=== PATIENT | female | born 1950 | race Caucasian/White ===

== ENCOUNTER 2016-05-02 21:06 | Emergency (ER) | payer OTHER ==
[~2016-05-02] VITALS: Ht 160 cm; Wt 92.0 kg
[~2016-05-02 21:06] MED LIST: AMLO-110 PO; ASPI-435 PO; ATEN-171 PO; ATOR-54 PO; FENO1TAB PO; SITA50TA5 PO
[2016-05-02 21:11] VITALS: Ht 160 cm; Wt 92.0 kg
[2016-05-02 21:54] LABS: BASO % 0.3 %; BASO ABS # 0.02 K/uL (0-0.2); COMPLETE YES; EOS % 0.3 %; HEMATOCRIT 35.5 % (37-47); IG% 0.5 %; LYMPH % 15.4 %; LYMPH ABS # 0.95 K/uL (1.2-3.4); MEAN CELL VOLUME 85.5 fL (80-100); MEAN CORPUSCULAR HEMOGLOBIN 28.9 pg (25-34); MEAN CORPUSCULAR HGB CONC 33.8 g/dl (32-36); MEAN PLATELET VOLUME 10.6 fL (7.4-10.4); MONO % 9.4 %; NEUT % 74.1 %; PLATELET COUNT 213 K/uL (130-400); RED BLOOD COUNT 4.15 M/uL (4.2-5.4); WHITE BLOOD COUNT 6.18 K/uL (4.8-10.8)
[2016-05-02] MEDS ORDERED: ACETAMINOPHEN 500 MG TAB PO ONE (22:05)
[2016-05-02] MEDS ORDERED: IPRATROPIUM BROMIDE NEB SOLN 0.02% 2.5 ML VIAL INH STA (22:10)
[2016-05-02] MEDS ORDERED: SODIUM CHLORIDE 0.9% 500ML 500 ML IV STA (22:10)
[2016-05-02] MEDS ORDERED: KETOROLAC TROMETHAMINE 30 MG/ML VIAL IV STA (22:10)
[2016-05-02] MEDS ORDERED: LEVALBUTEROL 1.25MG/0.5ML NEB INH STA (22:10)
[2016-05-02] MEDS ORDERED: SODIUM CHLORIDE 0.9% 1000ML 1,000 ML IV STA (22:10)
[2016-05-02 22:11] LABS: BUN/CREATININE RATIO 19.6 (10-20); CALCIUM 8.5 mg/dl (8.5-10.1); CREATININE 1.4 mg/dl (0.60-1.20); POTASSIUM 3.2 mmol/L (3.5-5.1)
--- NOTE | 2016-05-02 22:11 | DIAGNOSTIC IMAGING REPORT ---
SINGLE VIEW CHEST CLINICAL HISTORY: Fever. FINDINGS: An AP, portable, upright chest radiograph is obtained. No prior studies are available for comparison at the time of dictation. The examination is degraded by portable technique, apical lordotic positioning, and patient rotation. The heart is top normal in size and there is atherosclerotic calcification of the thoracic aorta. The pulmonary vasculature is noncongested. The lungs and pleural spaces are clear. No pneumothorax is seen. The skeletal structures are osteopenic. The bony thorax is grossly intact. IMPRESSION: No acute cardiopulmonary abnormality. Electronically signed by: Mark Hong M.D. 05/02/2016 10:10 PM Dictated Date/Time: 05/02/2016 10:09 PM
[2016-05-02 22:14] LABS: ALB/GLOB RATIO 1.1 (0.9-2)
--- NOTE | 2016-05-02 22:27 | EMERGENCY ROOM VISIT NOTE ---
History Report prepared by Yuri: Sushil Negro Under the Supervision of: Dr. Mark Hess M.D. First contact with patient: 22:07 Chief Complaint: FEVER Stated Complaint: FEVER FOR 3DAYS, COUGH History of Present Illness The patient is a 66 year old female who presents to the Emergency Room with complaints of a persistent fever beginning two days prior to arrival. She associates chills, dry cough, congestion, sore throat, weakness, fatigue, and confusion when her temperature is high with today's symptoms. The patient notes her was diagnosed with the flu yesterday. She states it takes a while for her to get up, and she will urinate herself when trying to get up. The patient notes she has been taking Tylenol and Ibuprofen to manage her fever. She denies ever having to take steroids for her lungs in the past. The patient denies chest pain, vomiting, and diarrhea. Source of History: patient Onset: two days [employer]PER[employer] Position: other (global) Quality: other (fever) Timing: other (persistent) Associated Symptoms: + chills, + cough, + fatigue, + fevers, + sorethroat, + weakness, No chest pain, No diarrhea, No nausea, No vomiting Note: Associated symptoms: congestion, confusion with high temperatures. Review of Systems See HPI for pertinent positives & negatives. A total of 10 systems reviewed and were otherwise negative. Past Medical & Surgical Medical Problems: (1) Diabetes (2) Hypertension Surgical Problems: (1) S/P (2) S/P cholecystectomy Family History Diabetes mellitus FH: heart disease FHx: lung disease Hypertension Social History Smoking Status: Never Smoker Marital Status: Occupation Status: retired Current/Historical Medications Scheduled Albuterol Hfa (Ventolin Hfa), 3 PUFFS INH Q4H Amlodipine (Norvasc), 5 MG PO DAILY Aspirin (Aspirin 81), 81 MG PO DAILY Atenolol/Chlorthalidone (Tenoretic 50 Mg/25 Mg), 1 TAB PO DAILY Atorvastatin (Lipitor), 20 MG PO DAILY Fenofibrate (Tricor), 160 MG PO DAILY Glimepiride (Amaryl), 4 MG PO DAILY Oseltamivir (Tamiflu), 75 MG PO BID Sitagliptin-Metformin Hcl (Janumet), 1 TABS PO BIDM Allergies Coded Allergies: No Known Allergies (Unverified , 05/02/16) Physical Exam Vital Signs Date Time Temp Pulse Resp B/P Pulse Ox O2 Delivery O2 Flow Rate FiO2 05/02/16 23:52 37.2 85 12 156/76 94 05/02/16 22:30 78 20 163/70 99 Nebulizer 8.0 05/02/16 22:23 85 05/02/16 22:07 90 Room Air 05/02/16 21:11 39.1 80 20 149/76 92 Room Air Physical Exam GENERAL: Patient is in no acute distress. HEENT: No throat erythema or exudate. No acute trauma, normocephalic atraumatic , mucous membranes moist, no nasal congestion, no scleral icterus. NECK: No stridor, no adenopathy, no meningismus, trachea is midline. LUNGS: Moist cough. Diminished breath sounds bilaterally. No wheezing or rhonchi. No respiratory distress. HEART: Without murmurs gallops or rubs, regular rate and rhythm. ABDOMEN: Soft, nontender, bowel sounds positive, no hernias, no peritonitis. EXTREMITIES: No cyanosis or edema, full range of motion of all the joints without pain or difficulty, no signs for acute trauma. NEUROLOGIC: Oriented x 3, no acute motor or sensory deficits, no focal weakness. SKIN: No rash, no jaundice, no diaphoresis. Medical Decision & Procedures ER Provider Diagnostic Interpretation: X-ray results as stated below per interpretation by me and the radiologist: SINGLE VIEW CHEST CLINICAL HISTORY: Fever. FINDINGS: An AP, portable, upright chest radiograph is obtained. No prior studies are available for comparison at the time of dictation. The examination is degraded by portable technique, apical lordotic positioning, and patient rotation. The heart is top normal in size and there is atherosclerotic calcification of the thoracic aorta. The pulmonary vasculature is noncongested. The lungs and pleural spaces are clear. No pneumothorax is seen. The skeletal structures are osteopenic. The bony thorax is grossly intact. IMPRESSION: No acute cardiopulmonary abnormality. Electronically signed by: Mark Hong M.D. 05/02/2016 10:10 PM Laboratory Results 05/02/16 21:30 Red Blood Count 4.15, Mean Corpuscular Volume 85.5, Mean Corpuscular Hemoglobin 28.9, Mean Corpuscular Hemoglobin Concent 33.8, Mean Platelet Volume 10.6, Neutrophils (%) (Auto) 74.1, Lymphocytes (%) (Auto) 15.4, Monocytes (%) (Auto) 9.4, Eosinophils (%) (Auto) 0.3, Basophils (%) (Auto) 0.3, Neutrophils # (Auto) 4.58, Lymphocytes # (Auto) 0.95, Monocytes # (Auto) 0.58, Eosinophils # (Auto) 0.02, Basophils # (Auto) 0.02 05/02/16 21:30 Test 05/02/16 21:30 05/02/16 21:55 05/02/16 21:57 05/02/16 22:00 White Blood Count 6.18 K/uL (4.8-10.8) Red Blood Count 4.15 M/uL (4.2-5.4) Hemoglobin 12.0 g/dL (12.0-16.0) Hematocrit 35.5 % (37-47) Mean Corpuscular Volume 85.5 fL (80-100) Mean Corpuscular Hemoglobin 28.9 pg (25-34) Mean Corpuscular Hemoglobin Concent 33.8 g/dl (32-36) Platelet Count 213 K/uL (130-400) Mean Platelet Volume 10.6 fL (7.4-10.4) Neutrophils (%) (Auto) 74.1 % Lymphocytes (%) (Auto) 15.4 % Monocytes (%) (Auto) 9.4 % Eosinophils (%) (Auto) 0.3 % Basophils (%) (Auto) 0.3 % Neutrophils # (Auto) 4.58 K/uL (1.4-6.5) Lymphocytes # (Auto) 0.95 K/uL (1.2-3.4) Monocytes # (Auto) 0.58 K/uL (0.11-0.59) Eosinophils # (Auto) 0.02 K/uL (0-0.5) Basophils # (Auto) 0.02 K/uL (0-0.2) RDW Standard Deviation 41.0 fL (36.4-46.3) RDW Coefficient of Variation 13.2 % (11.5-14.5) Immature Granulocyte % (Auto) 0.5 % Immature Granulocyte # (Auto) 0.03 K/uL (0.00-0.02) Urine Color YELLOW Urine Appearance CLOUDY (CLEAR) Urine pH 5.0 (4.5-7.5) Urine Specific [place] 1.017 (1.000-1.030) Urine Protein NEG (NEG) Urine Glucose (UA) NEG (NEG) Urine Ketones NEG (NEG) Urine Occult Blood NEG (NEG) Urine Nitrite NEG (NEG) Urine Bilirubin NEG (NEG) Urine Urobilinogen NEG (NEG) Urine Leukocyte Esterase NEG (NEG) Urine WBC (Auto) 1-5 /hpf (0-5) Urine RBC (Auto) 0-4 /hpf (0-4) Urine Hyaline Casts (Auto) 1-5 /lpf (0-5) Urine Epithelial Cells (Auto) 0-5 /lpf (0-5) Urine Bacteria (Auto) NEG (NEG) Anion Gap 14.0 mmol/L (3-11) Est Creatinine Clear Calc Drug Dose 43.2 ml/min Estimated GFR () 45.6 Estimated GFR (Non- 39.3 BUN/Creatinine Ratio 19.6 (10-20) Calcium Level 8.5 mg/dl (8.5-10.1) Total Bilirubin 0.3 mg/dl (0.2-1) Aspartate Amino Transf (AST/SGOT) 54 U/L (15-37) Alanine Aminotransferase (ALT/SGPT) 39 U/L (12-78) Alkaline Phosphatase 66 U/L (45-117) Total Protein 6.5 gm/dl (6.4-8.2) Albumin 3.4 gm/dl (3.4-5.0) Globulin 3.1 gm/dl (2.5-4.0) Albumin/Globulin Ratio 1.1 (0.9-2) Bedside Lactic Acid Venous 2.18 mmol/L (0.90-1.70) Bedside Troponin I 0.010 ng/ml (0-0.045) Influenza Type A Antigen POS for Influ A (NEG) Influenza Type B Antigen Neg for Influ B (NEG) Laboratory results reviewed by me. Medications Administered Medications (Trade) Dose Ordered Sig/Ting Route Start Time Stop Time Status Last Admin Dose Admin Acetaminophen 1000 mg 1,000 mg STK-MED ONCE PO 05/02/16 22:05 05/02/16 22:07 DC 05/02/16 22:09 1,000 MG Sodium Chloride (Nss 500ml) 500 ml @ 999 mls/hr Q31M STAT IV 1/25/17 22:10 05/02/16 22:40 DC 05/02/16 22:30 999 MLS/HR Ketorolac Tromethamine (Toradol Inj) 30 mg NOW STAT IV 05/02/16 22:10 05/02/16 22:14 DC 05/02/16 22:29 30 MG Levalbuterol (Xopenex 1.25MG/ 0.5ML Neb) 1.25 mg NOW STAT INH 05/02/16 22:10 05/02/16 22:14 DC 05/02/16 22:29 1.25 MG Ipratropium Starr (Atrovent 0.02% 0.5MG/2.5ML Neb) 0.5 mg NOW STAT INH 05/02/16 22:10 05/02/16 22:14 DC 05/02/16 22:29 0.5 MG Oseltamivir Phosphate (Tamiflu Cap) 75 mg NOW STAT PO 05/02/16 22:53 05/02/16 22:55 DC 05/02/16 23:42 75 MG Albuterol (Ventolin Hfa Inhaler) 2 puffs NOW ONCE INH 05/02/16 23:30 05/02/16 23:31 DC 05/02/16 23:43 2 PUFFS ED Course 8: The patient was evaluated in room C10. A complete history and physical exam was performed. 2210: Ordered Ipratropium Starr 0.5 mg INH, Levalbuterol 1.25 mg INH, Toradol Inj 30 mg IV, Sodium Chloride 1,000 ml @ 125 mls/hr IV, Sodium Chloride 500 ml @ 999 mls/hr IV. It is noted the patient is positive for influenza A. 2253: Ordered Tamiflu Cap 75 mg PO. 2318: Reevaluated the patient. Discussed results and discharge instructions: She verbalized understanding and agreement. The patient is ready for discharge. 2330: Ordered Albuterol 2 puffs INH. Medical Decision The differential diagnoses include but are not limited to: influenza, pneumonia , flu-like illness, bronchitis, UTI, sepsis, dehydration, electrolyte imbalance. There is no leukocytosis or concerning anemia. No significant electrolyte abnormality, kidney failure or hepatitis. Lactic acid level is mildly elevated , likely from dehydration. Urinalysis does not show infection. Chest film does not show pneumonia. Influenza testing is positive for influenza A. Blood cultures are pending. The patient received a Xopenex Atrovent neb, she was given IV saline, IV Toradol , oral Tylenol. She received albuterol via [facility] and was given oral Tamiflu. The patient feels markedly better, her temperature has decreased. She is still coughing but she is not hypoxic. She is not toxic. I do think she can be discharged. She appears to have acute influenza. This diagnosis explains her presentation. She has agreed to return if worsening. As she has been sick for 2, maybe 3 days, I will try Tamiflu. Albuterol for bronchospasm. Hydration, rest and fever control were encouraged. Impression Primary Impression: Influenza A Additional Impression: Fever Scribe Attestation The scribe's documentation has been prepared under my direction and personally reviewed by me in its entirety. I confirm that the note above accurately reflects all work, treatment, procedures, and medical decision making performed by me. Departure Information Dispostion Home / Self-Care Prescriptions Albuterol Hfa (VENTOLIN HFA) 200 Puffs/75009 Mcg Aers 3 PUFFS INH Q4H, #1 INHALER Prov: Mark Hess M.D. 05/02/16 Oseltamivir (Tamiflu) 75 Mg Cap 75 MG PO BID, #10 CAP Prov: Mark Hess M.D. 05/02/16 Referrals Garett Melgar M.D.([facility]) (PCP) Forms HOME CARE DOCUMENTATION FORM, IMPORTANT VISIT INFORMATION Patient Instructions My [facility] Additional Instructions tamiflu 2x per day for 5 days fluids rest albuterol 3 puffs every 4 hours motrin and tylenol to control your fevers see your doctor for a recheck this week return for worsening symptoms or worsening breathing Problem Qualifiers
[2016-05-02] MEDS ORDERED: GLIM4TAB PO (22:45)
[2016-05-02] MEDS ORDERED: OSELTAMIVIR PHOSPHATE 75 MG CAP PO STA (22:53)
[2016-05-02] MEDS ORDERED: VNTHFA/IN INH (23:25)
[2016-05-02] MEDS ORDERED: OSEL75CA12 PO (23:25)
[2016-05-02] MEDS ORDERED: ALBUTEROL HFA 8 GM INHALER INH ONE (23:30)
[2016-05-02 23:52] VITALS: BP 156/76; PULSE 85; TEMP 37.2; O2SAT 94
[2016-05-03 01:37] LABS: URINE APPEARANCE CLOUDY (CLEAR); URINE BILIRUBIN NEG (NEG); URINE COLOR YELLOW; URINE EPITHELIAL CELL AUTO 0-5 /lpf (0-5); URINE NITRITE NEG (NEG); URINE SPECIFIC GRAVITY 1.017 (1.000-1.030); UROBILINOGEN NEG (NEG)
[2016-05-03 01:42] LABS: MANUAL MICROSCOPIC REQUIRED? NO; REVIEW REQ? NO
== END 2016-05-02 23:50 | disposition home or self-care (01) ==
LOC: C.EDB 21:07 → C.EDC 23:50
DX: J11.1 Influenza due to unidentified influenza virus with other respiratory manifestations (principal); I10 Essential (primary) hypertension; E11.9 Type 2 diabetes mellitus without complications; Z90.49 Acquired absence of other specified parts of digestive tract

== ENCOUNTER → 2016-05-21 | Outpatient (CLI) | payer OTHER ==
[~2016-05-21] MED LIST changes: +ACET650T66 PO; +AMLO-114 PO; +ASCO100061 PO; +CALC600T PO; +CHOL2000 PO; +CIPR-255 PO; +DOXY100C76 PO; +GLIM2TAB2 PO; +GLIM4TAB PO; +MAGN400T6 PO; +METR-163 PO; +MULT-506 PO; +OMEG10007 PO; +ONDA4TAB10 SL; +OSEL75CA12 PO; +SLWMEC PO; +VNTHFA/IN INH
--- NOTE | 2016-05-21 12:40 | MAMMOGRAPHY REPORT ---
BILATERAL DIGITAL SCREENING MAMMOGRAM WITH CAD: 05/21/2016 CLINICAL HISTORY: Routine screening. Patient has no complaints. TECHNIQUE: Current study was also evaluated with a Computer Aided Detection (CAD) system. Bilatera l CC and MLO views were obtained. COMPARISON: Comparison is made to exams dated: 05/19/2015 mammogram, 05/12/2014 mammogram, 05/11/2013 ma mmogram, 05/07/2012 mammogram, and 05/01/2011 mammogram - [facility]. BREAST COMPOSITION: There are scattered areas of fibroglandular density in both breasts. FINDINGS: No suspicious masses, calcifications, or areas of architectural distortion are noted in e ither breast. There has been no significant interval change compared to prior exams. IMPRESSION: ACR BI-RADS CATEGORY 1: NEGATIVE There is no mammographic evidence of malignancy. A 1 year screening mammogram is recommended. The p atient will receive written notification of the results. Approximately 10% of breast cancers are not detected with mammography. A negative mammographic repor t should not delay biopsy if a clinically suggestive mass is present. Xiomara Garnica M.D. ah/:05/21/2016 08:05:27 Food And Beverage Analyst: Lanny Patel, [facility] letter sent: Normal 1/2 BI-RADS Code: ACR BI-RADS Category 1: Negative
== END | disposition home or self-care (01) ==
LOC: C.MAMM 07:47
PROVIDERS: ATTEND Family Medicine
DX: Z12.31 Encounter for screening mammogram for malignant neoplasm of breast (principal)

== ENCOUNTER 2016-11-25 11:13 | Emergency (ER) | payer OTHER ==
[~2016-11-25] VITALS: Ht 160 cm; Wt 90.0 kg
[~2016-11-25 11:13] MED LIST changes: -ACET650T66 PO; -AMLO-114 PO; -ASCO100061 PO; -CALC600T PO; -CHOL2000 PO; -CIPR-255 PO; -DOXY100C76 PO; -GLIM2TAB2 PO; -MAGN400T6 PO; -METR-163 PO; -MULT-506 PO; -OMEG10007 PO; -ONDA4TAB10 SL; -OSEL75CA12 PO; -SLWMEC PO; -VNTHFA/IN INH
[2016-11-25 11:15] VITALS: TEMP 36.6; Ht 160 cm; Wt 90.0 kg
[2016-11-25] MEDS ORDERED: SODIUM CHLORIDE 0.9% 1000ML 1,000 ML IV STA (11:41)
[2016-11-25] MEDS ORDERED: ONDANSETRON INJ 2 MG/ML 2 ML VIAL IV STA (11:41)
[2016-11-25 11:58] LABS: BASO ABS # 0.09 K/uL (0-0.2); COMPLETE YES; EOS % 0.1 %; IG% 0.3 %; LYMPH % 28.2 %; LYMPH ABS # 2.63 K/uL (1.2-3.4); MEAN CELL VOLUME 86.3 fL (80-100); MEAN CORPUSCULAR HEMOGLOBIN 28.6 pg (25-34); MEAN CORPUSCULAR HGB CONC 33.2 g/dl (32-36); MEAN PLATELET VOLUME 10.1 fL (7.4-10.4); MONO % 9.3 %; NEUT % 61.1 %; PLATELET COUNT 328 K/uL (130-400); RED BLOOD COUNT 4.75 M/uL (4.2-5.4); WHITE BLOOD COUNT 9.32 K/uL (4.8-10.8)
[2016-11-25] MEDS ORDERED: CALC600T PO (12:02)
[2016-11-25] MEDS ORDERED: MAGN400T6 PO (12:02)
[2016-11-25] MEDS ORDERED: DOXY100C76 PO (12:02)
[2016-11-25] MEDS ORDERED: GLIM2TAB2 PO (12:02)
[2016-11-25] MEDS ORDERED: OMEG10007 PO (12:02)
[2016-11-25] MEDS ORDERED: AMLO-114 PO (12:02)
[2016-11-25] MEDS ORDERED: ASCO100061 PO (12:05)
[2016-11-25] MEDS ORDERED: MULT-506 PO (12:05)
[2016-11-25] MEDS ORDERED: SLWMEC PO (12:05)
[2016-11-25] MEDS ORDERED: CHOL2000 PO (12:05)
[2016-11-25] MEDS ORDERED: ACET650T66 PO (12:08)
[2016-11-25 12:13] LABS: BUN/CREATININE RATIO 25.2 (10-20); CREATININE 1.1 mg/dl (0.60-1.20); POTASSIUM 3.4 mmol/L (3.5-5.1)
[2016-11-25] MEDS ORDERED: OPTIRAY 320 IV PRN (12:30)
--- NOTE | 2016-11-25 14:26 | DIAGNOSTIC IMAGING REPORT ---
CT SCAN OF THE ABDOMEN AND PELVIS WITH IV CONTRAST CLINICAL HISTORY: Left lower quadrant abdominal pain. COMPARISON STUDY: Abdominal CT dated 11/03/2009. TECHNIQUE: Following the IV administration of 94 cc of Optiray 320, CT scan of the abdomen and pelvis is performed from the lung bases to the proximal femora. Images are reviewed in the axial, sagittal, and coronal planes. IV contrast was administered without complication. Automated dose control exposure was utilized. A dose lowering technique was utilized adhering to the principles of ALARA. CT DOSE: 885.67 mGy.cm FINDINGS: Lung bases: The heart is normal in size and without pericardial effusion. The coronary arteries are densely calcified. The lung bases are clear noting dependent atelectasis. Liver: The contrast-enhanced liver is enlarged, measuring 22 cm in length. The liver demonstrates diffusely diminished attenuation consistent with hepatic steatosis. There is mild central intrahepatic biliary ductal dilatation. The hepatic veins and portal veins are patent. Gallbladder: Surgically absent. Spleen: Normal in size and attenuation. Pancreas: Unremarkable. Adrenal glands: Unremarkable. Kidneys: The contrast enhanced kidneys demonstrate mild cortical atrophy and are without hydronephrosis. The kidneys enhance symmetrically. Abdominal vasculature: The abdominal aorta is normal in course and caliber noting moderate to advanced atherosclerotic calcification. Bowel: No bowel obstruction is seen. There is moderate colonic diverticulosis. There is wall thickening with pericolonic inflammation and trace surrounding fluid involving the distal descending/proximal sigmoid colon consistent with acute diverticulitis. No diverticular abscess is identified. The appendix is well-visualized and normal. Peritoneum: There is no intraperitoneal free air or abdominal ascites. Lymphadenopathy: None. Pelvic viscera: The bladder, uterus, and adnexa are normal as visualized. Skeletal structures: The skeletal structures are osteopenic. Mild to moderate lumbosacral spondylosis is observed. No lytic or blastic lesions are seen. IMPRESSION: 1. Findings are consistent with acute diverticulitis of the distal descending/proximal sigmoid colon. No intraperitoneal free air is seen and there is no evidence of abscess. 2. Hepatomegaly and hepatic steatosis. 3. The coronary arteries are densely calcified. Electronically signed by: Mark Hong M.D. 11/25/2016 2:25 PM Dictated Date/Time: 11/25/2016 2:20 PM
[2016-11-25] MEDS ORDERED: CIPROFLOXACIN 500 MG TAB PO STA (14:28)
[2016-11-25] MEDS ORDERED: METRONIDAZOLE 250 MG TAB PO STA (14:28)
[2016-11-25] MEDS ORDERED: CIPR-255 PO (14:31)
[2016-11-25] MEDS ORDERED: METR-163 PO (14:31)
[2016-11-25] MEDS ORDERED: ONDA4TAB10 SL (14:31)
--- NOTE | 2016-11-25 14:32 | EMERGENCY ROOM VISIT NOTE ---
History Report prepared by Yuri: Mariola Fernandez Under the Supervision of: Dr. Mt Marrero D.O. First contact with patient: 11:33 Chief Complaint: ABDOMINAL PAIN Stated Complaint: PAIN IN LOWER FRONT Nursing Triage Summary: pt to the ED with c/o lower abd pain starting at begining of last week with lack of interest in food and loose stool is being tx for lymes History of Present Illness The patient is a 66 year old female who presents to the Emergency Room with complaints of worsening lower abdominal pain which started earlier this week. The pain is in her lower abdomen and when she tries to relax, pain shoots down her groin. The pain worsened over the past 2 nights. She denies any nausea, vomiting, diarrhea, fever, or back pain. She is currently being treated for lyme disease and has had looser stools. She has had a cholecystectomy and c section. She denies any other abdominal surgeries. She denies any history of diverticulitis. She is not on blood thinners. Source of History: patient Onset: earlier this week Position: abdomen (lower) Quality: other (shooting) Timing: worsening Associated Symptoms: No fevers, No nausea, No vomiting, No back pain, No diarrhea Review of Systems See HPI for pertinent positives & negatives. A total of 10 systems reviewed and were otherwise negative. Past Medical & Surgical Medical Problems: (1) Diabetes (2) Hypertension Surgical Problems: (1) S/P (2) S/P cholecystectomy Family History Diabetes mellitus FH: heart disease FHx: lung disease Hypertension Social History Smoking Status: Never Smoker Marital Status: Occupation Status: retired Current/Historical Medications Scheduled Acetaminophen (Arthritis Pain), 4 TABS PO DAILY Amlodipine (Norvasc), 10 MG PO DAILY Ascorbic Acid (Ascorbic Acid), 1 TAB PO HS Aspirin (Aspirin 81), 81 MG PO DAILY Atenolol/Chlorthalidone (Tenoretic 50 Mg/25 Mg), 1 TAB PO DAILY Atorvastatin (Lipitor), 20 MG PO DAILY Calcium Carbonate (Calcium 600), 1 TAB PO BID Cholecalciferol (Vitamin D3), 1 CAP PO DAILY Ciprofloxacin Hcl (Cipro), 500 MG PO BID Doxycycline Monohydrate (Monodox), 100 MG PO BID Fenofibrate (Tricor), 160 MG PO DAILY Fish Oil ([place]-3), 1 CAP PO BID Glimepiride (Glimepiride), 1 TAB PO BID Magnesium Chloride (Slow-Mag Tab), 64 MG PO DAILY Magnesium Oxide (Mag-Ox), 400 MG PO BID Metronidazole (Flagyl), 500 MG PO BID Multivitamin (Multivitamin), 1 TAB PO DAILY Ondasetron Odt (Zofran Odt), 4 MG SL Q6H Sitagliptin-Metformin Hcl (Janumet), 1 TABS PO BIDM Allergies Coded Allergies: Amoxicillin (Unverified Allergy, Severe, RASH AND UPSET STOMACH, 11/25/16) Clavulanic Acid (Unverified Allergy, Severe, RASH AND UPSET STOMACH, ) Pioglitazone (Unverified Allergy, Severe, ., 11/25/16) Physical Exam Vital Signs Date Time Temp Pulse Resp B/P (MAP) Pulse Ox O2 Delivery O2 Flow Rate FiO2 11/25/16 15:02 65 16 137/65 98 11/25/16 13:36 71 16 139/80 96 Room Air 11/25/16 12:42 59 17 138/72 97 Room Air 11/25/16 11:15 36.6 93 16 117/75 96 Room Air Physical Exam CONSTITUTIONAL/VITAL SIGNS: Reviewed / noted above. GENERAL: Non-toxic in appearance. INTEGUMENTARY: Warm, dry, and [place]. HEAD: Normocephalic. EYES: without scleral icterus or trauma. ENT/OROPHARYNX: clear and moist. LYMPHADENOPATHY/NECK: Is supple without lymphadenopathy or meningismus. RESPIRATORY: Lungs clear and equal. CARDIOVASCULAR: Regular rate and rhythm. GI/ABDOMEN: Soft and tender in the LLQ. No organomegaly or pulsatile mass. No rebound or guarding. Normal bowel sounds. EXTREMITIES: Warm and well perfused. BACK: No CVA tenderness. NEUROLOGICAL: Intact without focal deficits. PSYCHIATRIC: normal affect. MUSCULOSKELETAL: Normally developed with good muscle tone. Medical Decision & Procedures ER Provider Diagnostic Interpretation: Radiology results as stated below per my review and radiologist interpretation: CT SCAN OF THE ABDOMEN AND PELVIS WITH IV CONTRAST CLINICAL HISTORY: Left lower quadrant abdominal pain. COMPARISON STUDY: Abdominal CT dated 11/03/2009. TECHNIQUE: Following the IV administration of 94 cc of Optiray 320, CT scan of the abdomen and pelvis is performed from the lung bases to the proximal femora. Images are reviewed in the axial, sagittal, and coronal planes. IV contrast was administered without complication. Automated dose control exposure was utilized. A dose lowering technique was utilized adhering to the principles of ALARA. CT DOSE: 885.67 mGy.cm FINDINGS: Lung bases: The heart is normal in size and without pericardial effusion. The coronary arteries are densely calcified. The lung bases are clear noting dependent atelectasis. Liver: The contrast-enhanced liver is enlarged, measuring 22 cm in length. The liver demonstrates diffusely diminished attenuation consistent with hepatic steatosis. There is mild central intrahepatic biliary ductal dilatation. The hepatic veins and portal veins are patent. Gallbladder: Surgically absent. Spleen: Normal in size and attenuation. Pancreas: Unremarkable. Adrenal glands: Unremarkable. Kidneys: The contrast enhanced kidneys demonstrate mild cortical atrophy and are without hydronephrosis. The kidneys enhance symmetrically. Abdominal vasculature: The abdominal aorta is normal in course and caliber noting moderate to advanced atherosclerotic calcification. Bowel: No bowel obstruction is seen. There is moderate colonic diverticulosis. There is wall thickening with pericolonic inflammation and trace surrounding fluid involving the distal descending/proximal sigmoid colon consistent with acute diverticulitis. No diverticular abscess is identified. The appendix is well-visualized and normal. Peritoneum: There is no intraperitoneal free air or abdominal ascites. Lymphadenopathy: None. Pelvic viscera: The bladder, uterus, and adnexa are normal as visualized. Skeletal structures: The skeletal structures are osteopenic. Mild to moderate lumbosacral spondylosis is observed. No lytic or blastic lesions are seen. IMPRESSION: 1. Findings are consistent with acute diverticulitis of the distal descending/proximal sigmoid colon. No intraperitoneal free air is seen and there is no evidence of abscess. 2. Hepatomegaly and hepatic steatosis. 3. The coronary arteries are densely calcified. Electronically signed by: Mark Hong M.D. 11/25/2016 2:25 PM Dictated Date/Time: 11/25/2016 2:20 PM Laboratory Results 11/25/16 11:30 Red Blood Count 4.75, Mean Corpuscular Volume 86.3, Mean Corpuscular Hemoglobin 28.6, Mean Corpuscular Hemoglobin Concent 33.2, Mean Platelet Volume 10.1, Neutrophils (%) (Auto) 61.1, Lymphocytes (%) (Auto) 28.2, Monocytes (%) (Auto) 9.3, Eosinophils (%) (Auto) 0.1, Basophils (%) (Auto) 1.0, Neutrophils # (Auto) 5.69, Lymphocytes # (Auto) 2.63, Monocytes # (Auto) 0.87, Eosinophils # (Auto) 0.01, Basophils # (Auto) 0.09 11/25/16 11:30 Test 11/25/16 11:30 White Blood Count 9.32 K/uL (4.8-10.8) Red Blood Count 4.75 M/uL (4.2-5.4) Hemoglobin 13.6 g/dL (12.0-16.0) Hematocrit 41.0 % (37-47) Mean Corpuscular Volume 86.3 fL (80-100) Mean Corpuscular Hemoglobin 28.6 pg (25-34) Mean Corpuscular Hemoglobin Concent 33.2 g/dl (32-36) Platelet Count 328 K/uL (130-400) Mean Platelet Volume 10.1 fL (7.4-10.4) Neutrophils (%) (Auto) 61.1 % Lymphocytes (%) (Auto) 28.2 % Monocytes (%) (Auto) 9.3 % Eosinophils (%) (Auto) 0.1 % Basophils (%) (Auto) 1.0 % Neutrophils # (Auto) 5.69 K/uL (1.4-6.5) Lymphocytes # (Auto) 2.63 K/uL (1.2-3.4) Monocytes # (Auto) 0.87 K/uL (0.11-0.59) Eosinophils # (Auto) 0.01 K/uL (0-0.5) Basophils # (Auto) 0.09 K/uL (0-0.2) RDW Standard Deviation 42.8 fL (36.4-46.3) RDW Coefficient of Variation 13.4 % (11.5-14.5) Immature Granulocyte % (Auto) 0.3 % Immature Granulocyte # (Auto) 0.03 K/uL (0.00-0.02) Anion Gap 9.0 mmol/L (3-11) Est Creatinine Clear Calc Drug Dose 54.3 ml/min Estimated GFR () 61.0 Estimated GFR (Non- 52.6 BUN/Creatinine Ratio 25.2 (10-20) Calcium Level 10.0 mg/dl (8.5-10.1) Total Bilirubin 0.6 mg/dl (0.2-1) Direct Bilirubin 0.1 mg/dl (0-0.2) Aspartate Amino Transf (AST/SGOT) 27 U/L (15-37) Alanine Aminotransferase (ALT/SGPT) 36 U/L (12-78) Alkaline Phosphatase 67 U/L (45-117) Total Protein 7.1 gm/dl (6.4-8.2) Albumin 3.2 gm/dl (3.4-5.0) Lipase 240 U/L (73-393) Laboratory results as stated above per my review. Medications Administered Medications (Trade) Dose Ordered Sig/Ting Route Start Time Stop Time Status Last Admin Dose Admin Sodium Chloride 1,000 ml @ 999 mls/hr Q1H1M STAT IV 11/25/16 11:41 11/25/16 12:41 DC 11/25/16 11:53 999 MLS/HR Ondansetron HCl (Zofran Inj) 4 mg NOW STAT IV 11/25/16 11:41 11/25/16 11:44 DC 11/25/16 11:53 4 MG Ciprofloxacin (Cipro Tab) 500 mg NOW STAT PO 11/25/16 14:28 11/25/16 14:29 DC 11/25/16 14:33 500 MG Metronidazole (Flagyl Tab) 500 mg NOW STAT PO 11/25/16 14:28 11/25/16 14:29 DC 11/25/16 14:33 500 MG Ketorolac Tromethamine (Toradol Inj) 30 mg NOW STAT IV 11/25/16 14:40 11/25/16 14:41 DC 11/25/16 14:55 30 MG ED Course 1138: Previous medical records were reviewed. The patient was evaluated in room A10. A complete history and physical examination was performed. 1141: Zofran Inj 4 mg IV, NSS 1000 ml @ 999 mls/hr IV. 1428: Flagyl Tab 500 mg PO, Cipro Tab 500 mg PO. 1440: On reevaluation, the patient is resting comfortably. I discussed the results and findings with the patient. She verbalized agreement of the treatment plan. She was discharged home. Medical Decision Differential considered: pancreatitis, hepatitis, or acute cholecystitis, AAA, UTI, pyelonephritis, kidney stones, appendicitis, diverticulitis, shingles, bowel obstruction mesenteric ischemia, intussusception,hernia, ovarian torsion, ruptured ovarian cyst,ectopic , . This is a 66-year-old female who presents to the ED with a chief complaint of lower abdominal pain. The patient states that she has bilateral lower abdominal pain that is worse than left. The patient's exam reveals tenderness in the left lower quadrant. She denies any associated symptoms such as nausea, vomiting or diarrhea. She has not had a fever or back pain. Her vital signs are stable. Blood work reveals a normal CBC. Chemistry panel was unremarkable. BUN is 28. CT scan shows diverticulitis. She was treated with IV fluids, IV Zofran, by mouth Cipro and Flagyl. She did not want pain medication. She is felt to be stable for discharge. Medication Reconcilliation Current Medication List: was personally reviewed by me Blood Pressure Screening Patient's blood pressure: Normal blood pressure Blood pressure disposition: Did not require urgent referral Impression Primary Impression: Diverticulitis Scribe Attestation The scribe's documentation has been prepared under my direction and personally reviewed by me in its entirety. I confirm that the note above accurately reflects all work, treatment, procedures, and medical decision making performed by me. Departure Information Dispostion Home / Self-Care Prescriptions Ondasetron Odt (ZOFRAN ODT) 4 Mg Tab 4 MG SL Q6H for Nausea, #15 TAB Prov: Mt Marrero D.O. 11/25/16 Metronidazole (Flagyl) 500 Mg Tab 500 MG PO BID, #20 TAB Prov: Mt Marrero D.O. 17 Ciprofloxacin Hcl (CIPRO) 500 Mg Tab 500 MG PO BID, #20 TAB Prov: Mt Marrero D.O. 17 Referrals Garett Melgar M.D.([facility]) (PCP) Patient Instructions ED Diverticulitis, My [facility] Additional Instructions Cipro and Flagyl as prescribed. Zofran: Allow one tablet to dissolve under the tongue every 6 hours as needed for nausea or vomiting. Follow-up with your doctor for further care and evaluation in 3-5 days. Return to the emergency department for worsening or new symptoms or any concerns. You have been examined and treated today on an emergency basis only. This is not a substitute for, or an effort to provide, complete comprehensive medical care. It is impossible to recognize and treat all injuries or illnesses in a single emergency department visit. It is therefore important that you follow up closely with your doctor. Call as soon as possible for an appointment.
[2016-11-25] MEDS ORDERED: KETOROLAC TROMETHAMINE 30 MG/ML VIAL IV STA (14:40)
[2016-11-25 15:02] VITALS: BP 137/65; PULSE 65; O2SAT 98
== END 2016-11-25 15:03 | disposition home or self-care (01) ==
LOC: C.EDB 11:14 → C.EDA 15:03
DX: K57.32 Diverticulitis of large intestine without perforation or abscess without bleeding (principal); A69.20 Lyme disease, unspecified; E11.9 Type 2 diabetes mellitus without complications; I10 Essential (primary) hypertension; Z79.82 Long term (current) use of aspirin; Z79.84 Long term (current) use of oral hypoglycemic drugs; Z83.3 Family history of diabetes mellitus; Z82.49 Family history of ischemic heart disease and other diseases of the circulatory system

== ENCOUNTER → 2017-05-22 | Outpatient (CLI) | payer OTHER ==
[~2017-05-22] MED LIST changes: +ACET650T66 PO; -AMLO-110 PO; +AMLO-114 PO; +ASCO100061 PO; +CALC600T PO; +CHOL2000 PO; +CIPR-255 PO; +DOXY100C76 PO; +GLIM2TAB2 PO; -GLIM4TAB PO; +MAGN400T6 PO; +METR-163 PO; +MULT-506 PO; +OMEG10007 PO; +ONDA4TAB10 SL; +SLWMEC PO
--- NOTE | 2017-05-22 15:24 | MAMMOGRAPHY REPORT ---
BILATERAL DIGITAL SCREENING MAMMOGRAM TOMOSYNTHESIS WITH CAD: 05/22/2017 CLINICAL HISTORY: Routine screening. Patient has no complaints. TECHNIQUE: Breast tomosynthesis in addition to standard 2D mammography was performed. Current study was also evaluated with a Computer Aided Detection (CAD) system. COMPARISON: Comparison is made to exams dated: 05/21/2016 mammogram, 05/19/2015 mammogram, 05/12/2014 ma mmogram, 05/11/2013 mammogram, 05/07/2012 mammogram, and 05/01/2011 mammogram - [facility] ter. BREAST COMPOSITION: There are scattered areas of fibroglandular density in both breasts. FINDINGS: The parenchymal pattern is unchanged. No developing mass, architectural distortion or clus ter of suspicious microcalcifications is seen in either breast. IMPRESSION: ACR BI-RADS CATEGORY 2: BENIGN There is no mammographic evidence of malignancy. A 1 year screening mammogram is recommended. The pa tient will receive written notification of the results. Approximately 10% of breast cancers are not detected with mammography. A negative mammographic report should not delay biopsy if a clinically suggestive mass is present. Emeli Julien M.D. ay/:05/22/2017 08:10:59 Plating Technician: Fanny CHEW([employer])([place]), [facility] letter sent: Normal 1/2 BI-RADS Code: ACR BI-RADS Category 2: Benign
== END | disposition home or self-care (01) ==
LOC: C.MAMM 07:47
PROVIDERS: ATTEND Family Medicine
DX: Z12.31 Encounter for screening mammogram for malignant neoplasm of breast (principal)

== ENCOUNTER 2021-02-20 12:03 | Inpatient (IN) ==
--- NOTE | 2021-02-20 12:25 | Emergency Department Note ---
Impression & Plan Hypertensive urgency, Headache, Hypercalcemia, Hypokalemia ED Provider Note NAME: MALINDA WANG AGE: 70 SEX: F : 1950 ARRIVES VIA: Ambulance INFORMANT: Patient, ED PROVIDER(S): Daniel Cuenca MD Chief Complaint: Headache HPI: Patient does complain of right-sided temporal headache which began shortly after doing some physical therapy today. The patient did have a fall several weeks ago but denies any head strike and does not take blood thinning medications. Patient has any fevers chills chest pains or shortness of breath. The patient does not complain of any vomiting. Patient denies any numbness tingling or focal weakness. No prior history of stroke. Patient denies any shoulder girdle discomfort. Patient denies any prior history of temporal arteritis and has no vision changes. Patient did take some Advil prior to arrival which mildly improved her symptoms. ROS: See HPI for pertinent positives and negatives. A total of 10 systems were reviewed and otherwise negative. Past medical history: See below Surgical history: See below Social history: See below Physical Exam: GENERAL: NAD, wearing a mask, non-toxic. Tearful. EYE EXAM: Normal conjunctiva. PERRL, no anisocoria and EOM's grossly intact w/o pain. Head: Reproducible right-sided temporal pain. NECK: Supple, no nuchal rigidity, no adenopathy, non-tender. No signs of meningismus. LUNGS: Clear to auscultation. Normal chest wall mechanics. HEART: NSR, no MRG. ABDOMEN: Abdomen soft, non-tender, normo-active bowel sounds, no masses, no rebound or guarding. BACK: No CVA TTP. SKIN: No rashes and no bruising. UPPER EXTREMITIES: Upper extremities are grossly normal. LOWER EXTREMITIES: Grossly normal, no edema. NEURO EXAM: A&O x3, cranial nerves II-XII grossly intact, normal speech, moves all 4 extremities on command w/o issue. Good finger to nose, no drift, no sensory deficits. Differential diagnoses: Migraine headache, meningitis, sinusitis, CO exposure, ICH, SAH, infection, tumor, headache, sinus thrombosis, arterial dissection, as well as other pathologies. Course: Patient was seen and evaluated the bedside. Full history physical exam was performed. Imaging Studies: See Below Cardiac monitoring: An order was placed for continuous cardiac monitoring. The monitor shows a rate of 62 with sinus rhythm. MDM: Patient was seen due to concern for headache and was noted to be hypertensive initially. The patient is not meningitic or encephalopathic although the states that she has been intermittently confused. Currently answers questions appropriately and follows commands. Blood work showed a normal white count H&H and platelet count. Kidney function unremarkable with mild hypercalcemia and hypokalemia. ESR is normal with mildly elevated CRP. I did consider the possibility of temporal arteritis. The patient does not complain of any jaw claudication. Patient does not have any vision changes. Patient did not have significant improvement of her headache after treatment and given the patient's persistently elevated BP the patient was given some hydralazine. Upon subsequent reassessment the patient did have virtual resolution of her headache. Given this I was concerned about hypertensive urgency. I did speak to the on- call hospitalist Dr. Alberto and the patient was admitted to the medicine service. Critical Care: I have personally spent 35 minutes of critical care time in direct management of this patient. This includes bedside care, interpretation of diagnostic studies, and testing, discussion with consultants, patient, and family members, and other require inpatient management activities. This 35 minutes is in excess of all separately billable procedures. Past Med/Surg History Medical History CKD (chronic kidney disease) stage 3, GFR 30-59 ml/min Diabetes Diverticulosis Hyperlipidemia Hypertension Obesity (BMI 30.0-34.9) FRANCESCA on CPAP Surgical History Hx of cholecystectomy No pertinent past surgical history S/P meniscectomy Social History Smoking Status: Never smoker Feels Safe at Home: Yes Allergies Allergies Allergy/AdvReac Type Severity Reaction Status Date / Time amoxicillin Allergy Severe RASH AND Unverified 02/20/21 15:07 UPSET STOMACH clavulanic acid Allergy Severe RASH AND Unverified 02/20/21 15:07 UPSET STOMACH pioglitazone Allergy Severe . Unverified 02/20/21 15:07 Home Meds Home Medications Medication Instructions Recorded Confirmed amlodipine 5 mg tablet 5 mg PO DAILY 02/20/21 02/20/21 ascorbic acid (vitamin C) 250 mg 250 mg PO DAILY 02/20/21 02/20/21 tablet (Vitamin C) aspirin 81 mg tablet,delayed 81 mg PO DAILY 02/20/21 02/20/21 release atenolol 50 mg-chlorthalidone 25 1 tab PO DAILY 02/20/21 02/20/21 mg tablet atorvastatin 20 mg tablet 20 mg PO DAILY 02/20/21 02/20/21 calcium carbonate-vitamin D3 600 1 tab PO DAILY 02/20/21 02/20/21 mg(1,500 mg)-400 unit chewable tablet (Calcium 600 with Vitamin D3) cyanocobalamin (vitamin B-12) 100 100 mcg PO DAILY 02/20/21 02/20/21 mcg tablet fenofibrate 160 mg tablet 160 mg PO DAILY 02/20/21 02/20/21 glimepiride 4 mg tablet 4 mg PO DAILY 02/20/21 02/20/21 magnesium aspartate HCl 61 mg (615 61 mg PO DAILY 02/20/21 02/20/21 mg) tablet,delayed release nortriptyline 10 mg capsule 10 - 20 mg PO HS PRN 02/20/21 02/20/21 omega 1-cti-qxs-fish oil 1,200 mg 2 cap PO DAILY 02/20/21 02/20/21 (144 mg-216 mg) capsule (Fish Oil) sitagliptin 50 mg-metformin 1,000 1 tab PO BID 02/20/21 02/20/21 mg tablet (Janumet) Results & Data (ED) Vital Signs Vital Signs - 24 hr 02/20/21 11:51 02/20/21 12:28 02/20/21 12:30 Temperature 36.7 C Temperature Source Oral Pulse Rate 56 L 53 L Pulse Rate from SpO2 Sensor Pulse Rhythm Respiratory Rate 20 16 27 H Respiratory Effort / Characteristics Non-Labored Respiratory Depth Normal Respiratory Pattern Regular Blood Pressure 218/87 H Blood Pressure Mean 130 Blood Pressure Position Sitting Pulse Oximetry 98 Oxygen Delivery Method Room Air Sepsis Recent Fever Within 48 Hours No Sepsis New/Unexplained Change in Mental Status No Sepsis Action Taken by Nursing No Action Required 02/20/21 12:40 02/20/21 12:43 02/20/21 12:50 Temperature Temperature Source Pulse Rate 53 L 72 54 L Pulse Rate from SpO2 Sensor Pulse Rhythm Regular Respiratory Rate 22 20 14 Respiratory Effort / Characteristics Respiratory Depth Respiratory Pattern Blood Pressure Blood Pressure Mean Blood Pressure Position Pulse Oximetry 98 Oxygen Delivery Method Room Air Sepsis Recent Fever Within 48 Hours Sepsis New/Unexplained Change in Mental Status Sepsis Action Taken by Nursing 02/20/21 13:00 02/20/21 13:10 02/20/21 13:20 Temperature Temperature Source Pulse Rate 52 L 51 L 52 L Pulse Rate from SpO2 Sensor Pulse Rhythm Respiratory Rate 21 21 17 Respiratory Effort / Characteristics Respiratory Depth Respiratory Pattern Blood Pressure 148/80 H Blood Pressure Mean 102 Blood Pressure Position Pulse Oximetry Oxygen Delivery Method Sepsis Recent Fever Within 48 Hours Sepsis New/Unexplained Change in Mental Status Sepsis Action Taken by Nursing 02/20/21 13:30 02/20/21 13:40 02/20/21 13:50 Temperature Temperature Source Pulse Rate 52 L 54 L 53 L Pulse Rate from SpO2 Sensor 53 L 53 L Pulse Rhythm Respiratory Rate 16 18 17 Respiratory Effort / Characteristics Respiratory Depth Respiratory Pattern Blood Pressure 181/86 H Blood Pressure Mean 117 Blood Pressure Position Pulse Oximetry 93 93 Oxygen Delivery Method Sepsis Recent Fever Within 48 Hours Sepsis New/Unexplained Change in Mental Status Sepsis Action Taken by Nursing 02/20/21 14:00 02/20/21 14:10 02/20/21 14:33 Temperature Temperature Source Pulse Rate 73 53 L 56 L Pulse Rate from SpO2 Sensor 57 L 53 L 55 L Pulse Rhythm Respiratory Rate 21 14 23 Respiratory Effort / Characteristics Respiratory Depth Respiratory Pattern Blood Pressure Blood Pressure Mean Blood Pressure Position Pulse Oximetry 89 L 93 97 Oxygen Delivery Method Sepsis Recent Fever Within 48 Hours Sepsis New/Unexplained Change in Mental Status Sepsis Action Taken by Nursing 02/20/21 14:40 02/20/21 15:02 02/20/21 15:30 Temperature Temperature Source Pulse Rate 54 L 120 H 56 L Pulse Rate from SpO2 Sensor 55 L 56 L Pulse Rhythm Respiratory Rate 16 10 L 18 Respiratory Effort / Characteristics Respiratory Depth Respiratory Pattern Blood Pressure 156/73 H Blood Pressure Mean 100 Blood Pressure Position Pulse Oximetry 94 96 Oxygen Delivery Method Sepsis Recent Fever Within 48 Hours Sepsis New/Unexplained Change in Mental Status Sepsis Action Taken by Nursing 02/20/21 16:00 Temperature Temperature Source Pulse Rate 57 L Pulse Rate from SpO2 Sensor 57 L Pulse Rhythm Respiratory Rate 19 Respiratory Effort / Characteristics Respiratory Depth Respiratory Pattern Blood Pressure 159/82 H Blood Pressure Mean 107 Blood Pressure Position Pulse Oximetry 97 Oxygen Delivery Method Sepsis Recent Fever Within 48 Hours Sepsis New/Unexplained Change in Mental Status Sepsis Action Taken by Care Home Medications Current Medication List: was personally reviewed by me Laboratory Data Attestation: I reviewed the patient's lab results. Result diagrams: 02/20/21 13:37 02/20/21 13:37 Lab Results 02/20/21 02/20/21 02/20/21 Range/Units 13:37 13:37 13:37 WBC 7.76 (4.8-10.8) K/uL RBC 4.72 (4.2-5.4) M/uL Hgb 13.8 (12.0-16.0) g/dL Hct 41.4 (37-47) % MCV 87.7 (80-100) fL MCH 29.2 (25-34) pg MCHC 33.3 (32-36) g/dL RDW Std Deviation 41.3 (36.4-46.3) fL RDW Coeff of Freddie 12.8 (11.5-14.5) % Plt Count 307 (130-400) K/uL MPV 10.6 H (7.4-10.4) fL Immature Gran % (Auto) 0.1 % Neut % (Auto) 63.7 % Lymph % (Auto) 27.2 % [place] % (Auto) 7.2 % Eos % (Auto) 1.7 % Baso % (Auto) 0.1 % Neut # (Auto) 4.94 (1.4-6.5) K/uL Lymph # (Auto) 2.11 (1.2-3.4) K/uL [place] # (Auto) 0.56 (0.11-0.59) K/uL Eos # (Auto) 0.13 (0-0.5) K/uL Baso # (Auto) 0.01 (0-0.2) K/uL Immature Gran # (Auto) 0.01 (0.00-0.02) K/uL ESR 6 (0-30) mm/hr Sodium 137 (136-145) mmol/L Potassium 3.2 L (3.5-5.1) mmol/L Chloride 102 (98-107) mmol/L Carbon Dioxide 30 (21-32) mmol/L Anion Gap 5.0 (3-11) BUN 21 H (7-18) mg/dl Creatinine 1.18 (0.6-1.2) mg/dl Est Cr Clr Drug Dosing Not Reportable Est GFR ( Amer) 54.5 ml/min Est GFR (Non-Af Amer) 47.0 ml/min BUN/Creatinine Ratio 17.5 (10-20) Glucose 222 H (70-99) mg/dl Calcium 11.2 H (8.5-10.1) mg/dl Total Bilirubin 0.5 (0.2-1) mg/dl AST 22 (15-37) U/L ALT 61 (12-78) U/L Alkaline Phosphatase 41 L (45-117) U/L C-Reactive Protein 0.44 H (0-0.29) mg/dl Total Protein 6.8 (6.4-8.2) gm/dl Albumin 3.3 L (3.4-5.0) gm/dl Globulin 3.5 (2.5-4.0) gm/dl Albumin/Globulin Ratio 0.9 (0.9-2) Administered Medications Discontinued Medications Dexamethasone Sodium Phosphate (DexamethasonePf 10 Mg/Ml Vial) 10 mg IV NOW ONE Stop: 02/20/21 12:44 Last Admin: 02/20/21 13:40 Dose: 10 mg Documented by: [id number] Diphenhydramine HCl (Diphenhydramine 50 Mg/Ml Vial) 25 mg IV NOW STA Stop: 02/20/21 12:44 Last Admin: 02/20/21 13:41 Dose: 25 mg Documented by: [id number] Hydralazine HCl (Hydralazine Hcl 20 Mg/Ml Vial) 10 mg IV NOW STA Stop: 02/20/21 14:59 Last Admin: 02/20/21 15:11 Dose: 10 mg Documented by: [id number] Sodium Chloride (Nss 1000ml) 1,000 mls @ 999 mls/hr IV .Q1H1M ABELARDO Stop: 02/20/21 13:45 Last Infusion: 02/20/21 16:25 Dose: 0 mls/hr Documented by: [id number] Admin: 02/20/21 13:41 Dose: 999 mls/hr Documented by: [id number] Magnesium Sulfate/Dextrose (Magnesium Sulfate / D5w) 1 gm in 100 mls @ 100 mls/hr IV NOW ONE Stop: 02/20/21 13:42 Last Infusion: 02/20/21 16:25 Dose: 0 mls/hr Documented by: [id number] Admin: 02/20/21 13:41 Dose: 100 mls/hr Documented by: [id number] Prochlorperazine (Prochlorperazine 5 Mg/Ml 2 Ml Vial) 10 mg IV NOW STA Stop: 02/20/21 12:44 Last Admin: 02/20/21 13:41 Dose: 10 mg Documented by: [id number] Imaging Data Radiologist's Impression: Head CT 02/20/21 12:44 CT head/brain wo con CLINICAL HISTORY: 70 years-old Female with Headache. Acute headache TECHNIQUE: Multiple axial CT images of the head were obtained without contrast. A dose lowering technique was utilized adhering to the principles of ALARA. CT DOSE: 614.27 mGy.cm COMPARISON: None. FINDINGS: No acute intracranial hemorrhage, midline shift, intracranial mass, hydrocephalus, territorial ischemia or abnormal extra-axial collection. Age- related involutional changes. White matter hypodensities suggest chronic microvascular ischemic disease. Cerebral vascular calcifications. The calvarium is intact. Disconjugate gaze. The paranasal sinuses, mastoid air cells, and middle ear cavities are clear. IMPRESSION: No acute intracranial abnormality. ACT 112: Negative or not required by law. The above report was generated using voice recognition software. It may contain grammatical, syntax or spelling errors. Electronically signed by: Aledn Madrid M.D. 02/20/2021 2:34 PM Discharge Plan Visit Data Chief Complaint: Headache ED Provider: Daniel Cuenca Discharge Problem: Hypertensive urgency, Headache, Hypercalcemia, Hypokalemia Patient Disposition: Admitted As Inpatient Forms Stand Alone Forms: [facility] Prescriptions Prescriptions: No Action atorvastatin 20 mg tablet 20 mg PO DAILY RF: 0 magnesium aspartate HCl 61 mg (615 mg) Tablet,Delayed Release (Dr/Ec) 61 mg PO DAILY RF: 0 cyanocobalamin (vitamin B-12) 100 mcg Tablet 100 mcg PO DAILY RF: 0 atenolol-chlorthalidone 50-25 mg tablet 1 tab PO DAILY RF: 0 amlodipine 5 mg tablet 5 mg PO DAILY RF: 0 aspirin 81 mg Tablet,Delayed Release (Dr/Ec) 81 mg PO DAILY RF: 0 ascorbic acid (vitamin C) [Vitamin C] 250 mg Tablet 250 mg PO DAILY RF: 0 nortriptyline 10 mg capsule 10 - 20 mg PO HS PRN (Reason: Pain) RF: 0 glimepiride 4 mg tablet 4 mg PO DAILY RF: 0 fenofibrate 160 mg tablet 160 mg PO DAILY RF: 0 Janumet 50-1,000 mg tablet 1 tab PO BID RF: 0 Calcium 600 with Vitamin D3 600 mg(1,500mg) -400 unit Tablet,Chewable 1 tab PO DAILY RF: 0 omega 9-myj-ysa-fish oil [Fish Oil] 1,200 (144-216) mg Capsule 2 cap PO DAILY RF: 0 Referrals Referrals: Garett Melgar MD [Physician] -
[2021-02-20] MEDS ORDERED: PROCHLORPERAZINE 5 MG/ML 2 ML VIAL IV STA (12:43)
[2021-02-20] MEDS ORDERED: dexAMETHasone**PF** 10 MG/ML VIAL IV ONE (12:43)
[2021-02-20] MEDS ORDERED: diphenhydrAMINE 50 MG/ML VIAL IV STA (12:43)
[2021-02-20] MEDS ORDERED: MAGNESIUM SULFATE / D5W 1 GM/100 ML BAG IV ONE (12:43)
[2021-02-20] MEDS ORDERED: SODIUM CHLORIDE 0.9% 1000ML 1,000 ML IV SCH (12:45)
[2021-02-20 14:01] LABS: Basophils # (auto) 0.01 K/uL (0-0.2); Basophils % (auto) 0.1 %; Eosinophils # (auto) 0.13 K/uL (0-0.5); Eosinophils % (auto) 1.7 %; Hematocrit (blood only) 41.4 % (37-47); Hemoglobin 13.8 g/dL (12.0-16.0); Immature Granulocytes # (auto) 0.01 K/uL (0.00-0.02); Immature Granulocytes % (auto) 0.1 %; Lymphocytes # (auto) 2.11 K/uL (1.2-3.4); Lymphocytes % (auto) 27.2 %; Mean Corpuscular Hemoglobin 29.2 pg (25-34); Mean Corpuscular Hgb Conc 33.3 g/dL (32-36); Mean Corpuscular Volume 87.7 fL (80-100); Mean Platelet Volume 10.6 fL (7.4-10.4); Monocytes # (auto) 0.56 K/uL (0.11-0.59); Monocytes % (auto) 7.2 %; Neutrophils # (auto) 4.94 K/uL (1.4-6.5); Neutrophils % (auto) 63.7 %; Platelet Count 307 K/uL (130-400); RDW Coefficient of Variation 12.8 % (11.5-14.5); RDW Standard Deviation 41.3 fL (36.4-46.3); Red Blood Count 4.72 M/uL (4.2-5.4); White Blood Count 7.76 K/uL (4.8-10.8)
[2021-02-20 14:21] LABS: Alanine Aminotransferase 61 U/L (12-78); Albumin Level 3.3 gm/dl (3.4-5.0); Aspartate Aminotransferase 22 U/L (15-37); BUN Creatinine Ratio 17.5 (10-20); Blood Urea Nitrogen 21 mg/dl (7-18); Calcium 11.2 mg/dl (8.5-10.1); Carbon Dioxide 30 mmol/L (21-32); Chloride 102 mmol/L (98-107); Est GFR (African American) 54.5 ml/min; Glucose 222 mg/dl (70-99); Potassium 3.2 mmol/L (3.5-5.1); Sodium 137 mmol/L (136-145)
[2021-02-20 14:29] LABS: Albumin Globulin Ratio 0.9 (0.9-2); Alkaline Phosphatase 41 U/L (45-117); Bilirubin,Total 0.5 mg/dl (0.2-1); C Reactive Protein 0.44 mg/dl (0-0.29); Globulin 3.5 gm/dl (2.5-4.0); Total Protein 6.8 gm/dl (6.4-8.2)
--- NOTE | 2021-02-20 14:36 | CT Scan Report ---
CT head/brain wo con CLINICAL HISTORY: 70 years-old Female with Headache. Acute headache TECHNIQUE: Multiple axial CT images of the head were obtained without contrast. A dose lowering tech nique was utilized adhering to the principles of ALARA. CT DOSE: 614.27 mGy.cm COMPARISON: None. FINDINGS: No acute intracranial hemorrhage, midline shift, intracranial mass, hydrocephalus, territorial ischem ia or abnormal extra-axial collection. Age-related involutional changes. White matter hypodensities s uggest chronic microvascular ischemic disease. Cerebral vascular calcifications. The calvarium is intact. Disconjugate gaze. The paranasal sinuses, mastoid air cells, and middle ear cavities are clear. IMPRESSION: No acute intracranial abnormality. ACT 112: Negative or not required by law. The above report was generated using voice recognition software. It may contain grammatical, syntax o r spelling errors. Electronically signed by: Alden Madrid M.D. 02/20/2021 2:34 PM
[2021-02-20] MEDS ORDERED: hydrALAZINE HCL 20 MG/ML VIAL IV STA (14:58)
[2021-02-20] MEDS ORDERED: ACETAMINOPHEN 325 MG TAB PO PRN (16:44)
[2021-02-20] MEDS ORDERED: POTASSIUM CHLORIDE CRTAB 20 MEQ TABCR PO STA (16:48)
[2021-02-20] MEDS ORDERED: CARBOHYDRATES FOR HYPOGLYCEMIA PO PRN (17:00)
[2021-02-20] MEDS ORDERED: DEXTROSE 50% 50 ML SYRINGE IV PRN (17:00)
[2021-02-20] MEDS ORDERED: GLUCAGON FOR INJ 1 MG VIAL SQ PRN (17:00)
[2021-02-20] MEDS ORDERED: GLUCOSE 40% GEL 15 GM TUBE PO PRN (17:00)
[2021-02-20] MEDS ORDERED: GLUCOSE 10 TABS/TUBE PO PRN (17:00)
--- NOTE | 2021-02-20 17:10 | History & Physical Report ---
Date of Service February 20, 2021 Assessment & Plan (1) Hypertensive urgency: (2) Headache: Plan: - Presents w/ VELEZ in ER - CT head negative - given Mag, decadron, benadryl, compazine w/o much improvement of VELEZ - in ED BP 218/87, 181/86 - received 10 IV hydralazine in ED w/ improvement of VELEZ - current BP 159/82 - at home on atenolol-chlorthalidone - cont. current dose for now (even though chlorthalidone may contribute to her hypercalcemia) - amlodipne 5 mg - likely will increase to 10 mg daily - Per primary care note, patient developed cough with RENE inhibitors - IV hydralazine prn - cont. to closely monitor (3) Diabetes mellitus type 2 in obese: Plan: - last Hgb A1c 8.1% in September 2020 - hold home PO medications - SSI while inpt - follow up as outpt (4) Hyperlipidemia: Plan: - cont. atorvastatin (5) FRANCESCA on CPAP: Plan: - cont. CPAP -Patient's daughter says she can bring one from home (6) Obesity (BMI 30.0-34.9): Plan: - provide counseling (7) CKD (chronic kidney disease) stage 3, GFR 30-59 ml/min: Plan: - baseline Cr 1.2 - currently at baseline - try to avoid nephrotoxic agents - NSAIDs, contrast - cont. to monitor Hypercalcemia -Ca 11.2 -Hold home calcium supplement -Continue IV fluids and repeat calcium level in the morning -Obtain PTH level Hypokalemia - K 3.2 -replete and monitor DVT ppx : SCDs History of Present Illness Chief Complaint: headache Primary Care Provider: Brennan Hendrix MD 70-year-old female, with history of hypertension, hyperlipidemia, diabetes mellitus type 2, not on insulin, CKD stage III, FRANCESCA on CPAP, obesity, who presents with headache. Patient reports she worked with PT for her chronic right hip pain, when she developed right-sided headache. She took Tylenol at home, however as symptoms did not resolved, she presented to ED. In ED CT scan of head was negative, and she also received " headache cocktail" which included Compazine, magnesium, Decadron, Benadryl. Her symptoms however did not improve much. Her blood pressure was also quite elevated, systolic blood pressure over 200 when she presented to ED. She received 10 IV of hydralazine which helped symptoms significantly. Patient reports she usually does not have headaches however her blood pressures been running on the higher side. Recently she had injection done for her sacroiliac joint pain, and at that time her blood pressure was elevated, and it was attributed to pain. Recently she was also started on oxycodone. Patient reports she has been having issues with her right hip pain since September after she took a long driving trip with her family. Says that her primary care physician plans to do MRI next. In the ED, her calcium is also slightly elevated, and potassium slightly low. Per primary care records, potassium is about the same. Also her renal function seems to be unchanged. Reportedly RENE inhibitor causes cough for her. In ED, did not want to do labetalol for her blood pressure given her heart rates in the 50s. Currently she is lying in bed, in no acute distress, sleepy after all the medications she was given. Daughter is at the bedside. Patient reports she st ill has some headache but much improved. Denies any other symptoms. Specifically denies any fevers, chills, chest pain, shortness of breath, abdominal pain, nausea or vomiting. Allergies Allergy/AdvReac Type Severity Reaction Status Date / Time amoxicillin Allergy Severe RASH AND Unverified 02/20/21 15:07 UPSET STOMACH clavulanic acid Allergy Severe RASH AND Unverified 02/20/21 15:07 UPSET STOMACH pioglitazone Allergy Severe . Unverified 02/20/21 15:07 Home Medications Medication Instructions Recorded Confirmed Type amlodipine 5 mg tablet 5 mg PO DAILY 02/20/21 02/20/21 History ascorbic acid (vitamin C) 250 mg 250 mg PO DAILY 02/20/21 02/20/21 History tablet (Vitamin C) aspirin 81 mg tablet,delayed 81 mg PO DAILY 02/20/21 02/20/21 History release atenolol 50 mg-chlorthalidone 25 1 tab PO DAILY 02/20/21 02/20/21 History mg tablet atorvastatin 20 mg tablet 20 mg PO DAILY 02/20/21 02/20/21 History calcium carbonate-vitamin D3 600 1 tab PO DAILY 02/20/21 02/20/21 History mg(1,500 mg)-400 unit chewable tablet (Calcium 600 with Vitamin D3) cyanocobalamin (vitamin B-12) 100 100 mcg PO DAILY 02/20/21 02/20/21 History mcg tablet fenofibrate 160 mg tablet 160 mg PO DAILY 02/20/21 02/20/21 History glimepiride 4 mg tablet 4 mg PO DAILY 02/20/21 02/20/21 History magnesium aspartate HCl 61 mg (615 61 mg PO DAILY 02/20/21 02/20/21 History mg) tablet,delayed release nortriptyline 10 mg capsule 10 - 20 mg PO HS PRN 02/20/21 02/20/21 History omega 9-kjq-lrn-fish oil 1,200 mg 2 cap PO DAILY 02/20/21 02/20/21 History (144 mg-216 mg) capsule (Fish Oil) sitagliptin 50 mg-metformin 1,000 1 tab PO BID 02/20/21 02/20/21 History mg tablet (Janumet) Past Med/Surg History Medical History CKD (chronic kidney disease) stage 3, GFR 30-59 ml/min Diabetes Diverticulosis Hyperlipidemia Hypertension Obesity (BMI 30.0-34.9) FRANCESCA on CPAP Surgical History Hx of cholecystectomy No pertinent past surgical history S/P meniscectomy Social History Smoking Status: Never smoker Second Hand Exposure: No; Do You Dip or Chew Tobacco: No; Tobacco Cessation Education Requested by Patient: No Hx Alcohol Use: No Hx Substance Use: No Preferred Language: Albanian Communication Ability: Effective Clinical Lab Scientist Required: No Beliefs That Will Affect Care: None Current Living Situation: Spouse Other Information That Helps Us Care for You: No Feels Safe at Home: Yes Safety Concerns: Feels Safe At This Time Assistive Devices: CPAP and Glasses Review of Systems Review of Systems: All systems reviewed & are unremarkable except as noted in HPI & below Physical Exam Constitutional: WD/WN, vitals as above (obese F in NAD, on RA) Eyes: PERRL, conjunctivae normal, anicteric sclerae ENMT: external ear and nose normal, oropharynx normal Neck: trachea midline, no thyromegaly Respiratory: normal respiratory effort, lungs clear to auscultation Cardiovascular: RRR, no murmur, no edema Chest (Breasts): Chest: normal inspection of chest Gastrointestinal (Abdomen): normal bowel sounds, soft, nontender, no hepatosplenomegaly Musculoskeletal: no cyanosis or clubbing, extremities motor strength 5/5 Skin: no rashes, warm and dry Neurologic: PERRL, EOMI, accommodation nl, no face palsy, no dysarthria Psychiatric: A+Ox3, euthymic affect Genitourinary: no CVA tenderness Lymphatic: no lymphedema Results & Data Results & Data ([facility]) Vital Signs (Past 12 Hours) Vital Signs Temp Pulse Resp BP Pulse Ox 02/20/21 16:00 57 L 19 159/82 H 97 02/20/21 15:30 56 L 18 156/73 H 96 02/20/21 15:02 120 H 10 L 02/20/21 14:40 54 L 16 94 02/20/21 14:33 56 L 23 97 02/20/21 14:10 53 L 14 93 02/20/21 14:00 73 21 89 L 02/20/21 13:50 53 L 17 93 02/20/21 13:40 54 L 18 93 02/20/21 13:30 52 L 16 181/86 H 02/20/21 13:20 52 L 17 02/20/21 13:10 51 L 21 02/20/21 13:00 52 L 21 148/80 H 02/20/21 12:50 54 L 14 02/20/21 12:43 72 20 98 02/20/21 12:40 53 L 22 02/20/21 12:30 27 H 02/20/21 12:28 53 L 16 02/20/21 11:51 36.7 C 56 L 20 218/87 H 98 Laboratory Results 02/20/21 02/20/21 02/20/21 Range/Units 13:37 13:37 13:37 WBC 7.76 (4.8-10.8) K/uL RBC 4.72 (4.2-5.4) M/uL Hgb 13.8 (12.0-16.0) g/dL Hct 41.4 (37-47) % MCV 87.7 (80-100) fL MCH 29.2 (25-34) pg MCHC 33.3 (32-36) g/dL RDW Std Deviation 41.3 (36.4-46.3) fL RDW Coeff of Freddie 12.8 (11.5-14.5) % Plt Count 307 (130-400) K/uL MPV 10.6 H (7.4-10.4) fL Immature Gran % (Auto) 0.1 % Neut % (Auto) 63.7 % Lymph % (Auto) 27.2 % [place] % (Auto) 7.2 % Eos % (Auto) 1.7 % Baso % (Auto) 0.1 % Neut # (Auto) 4.94 (1.4-6.5) K/uL Lymph # (Auto) 2.11 (1.2-3.4) K/uL [place] # (Auto) 0.56 (0.11-0.59) K/uL Eos # (Auto) 0.13 (0-0.5) K/uL Baso # (Auto) 0.01 (0-0.2) K/uL Immature Gran # (Auto) 0.01 (0.00-0.02) K/uL ESR 6 (0-30) mm/hr Sodium 137 (136-145) mmol/L Potassium 3.2 L (3.5-5.1) mmol/L Chloride 102 (98-107) mmol/L Carbon Dioxide 30 (21-32) mmol/L Anion Gap 5.0 (3-11) BUN 21 H (7-18) mg/dl Creatinine 1.18 (0.6-1.2) mg/dl Est Cr Clr Drug Dosing Not Reportable Est GFR ( Amer) 54.5 ml/min Est GFR (Non-Af Amer) 47.0 ml/min BUN/Creatinine Ratio 17.5 (10-20) Glucose 222 H (70-99) mg/dl Calcium 11.2 H (8.5-10.1) mg/dl Total Bilirubin 0.5 (0.2-1) mg/dl AST 22 (15-37) U/L ALT 61 (12-78) U/L Alkaline Phosphatase 41 L (45-117) U/L C-Reactive Protein 0.44 H (0-0.29) mg/dl Total Protein 6.8 (6.4-8.2) gm/dl Albumin 3.3 L (3.4-5.0) gm/dl Globulin 3.5 (2.5-4.0) gm/dl Albumin/Globulin Ratio 0.9 (0.9-2) Code Status & VTE Plan VTE Prophylaxis Plan VTE Prophylaxis will be ordered: Yes
[2021-02-20] MEDS ORDERED: hydrALAZINE HCL 20 MG/ML VIAL IV PRN (17:15)
[2021-02-20] MEDS ORDERED: NORTRIPTYLINE HCL 10 MG CAP PO PRN (21:47)
[2021-02-20] MEDS ORDERED: INSULIN ASPART 100 UNITS/ML 3 ML PEN SC SCH (22:00)
[2021-02-20] MEDS ORDERED: OPTIRAY 320 125ml IV ONE (22:21)
[2021-02-20 23:15] LABS: Basophils # (auto) 0.01 K/uL (0-0.2); Basophils % (auto) 0.1 %; Hematocrit (blood only) 43.3 % (37-47); Hemoglobin 14.8 g/dL (12.0-16.0); Immature Granulocytes # (auto) 0.01 K/uL (0.00-0.02); Immature Granulocytes % (auto) 0.1 %; Lymphocytes # (auto) 0.73 K/uL (1.2-3.4); Lymphocytes % (auto) 10.4 %; Mean Corpuscular Hemoglobin 29.8 pg (25-34); Mean Corpuscular Hgb Conc 34.2 g/dL (32-36); Mean Corpuscular Volume 87.3 fL (80-100); Mean Platelet Volume 10.6 fL (7.4-10.4); Monocytes # (auto) 0.21 K/uL (0.11-0.59); Neutrophils # (auto) 6.04 K/uL (1.4-6.5); Neutrophils % (auto) 86.4 %; Platelet Count 320 K/uL (130-400); RDW Standard Deviation 41.4 fL (36.4-46.3); Red Blood Count 4.96 M/uL (4.2-5.4)
[2021-02-20 23:38] LABS: BUN Creatinine Ratio 16.8 (10-20); Calcium 9.8 mg/dl (8.5-10.1); Creatinine Clr Calc Pharmacy 50.9 ml/min; Est GFR (Non-African American) 50.1 ml/min; Potassium 3.7 mmol/L (3.5-5.1)
[2021-02-20] MEDS ORDERED: No Aspirin within 24hrs of THROMBOLYTIC-Stroke SCH (23:45)
[2021-02-20] MEDS ORDERED: TPA for Stroke IV STA (23:47)
[2021-02-21] MEDS ORDERED: PRIMARY PLUMSET, PE LINED TUBING, 113 IN, NON-DEHP (2260-0500) IV ONE
[2021-02-21] MEDS ORDERED: ALTEPLASE IV ONE
[2021-02-21] MEDS ORDERED: RECOMBINANT IV ONE
[2021-02-21] MEDS ORDERED: Alteplase Bolus 8.2 MG in SYRINGE 0 ML IV ONE
[2021-02-21] MEDS ORDERED: SEVERE STRESS LEVEL ONE (00:01)
[2021-02-21] MEDS ORDERED: INSULIN PROTOCOL GOAL RANGE ONE (00:01)
[2021-02-21] MEDS ORDERED: STAT IV Infusion **Titration per Protocol STA (00:01)
[2021-02-21] MEDS ORDERED: INSULIN REGULAR 250 UNITS in SODIUM CHLORIDE 0.9% 247.5 ML IV SCH (00:15)
[2021-02-21] MEDS ORDERED: INSULIN HUMAN REGULAR IV BOLUS 3.5 UNITS in SYRINGE 0 ML IV ONE (00:15)
[2021-02-21] MEDS: MAGNESIUM SULFATE / D5W 1 GM/100 ML BAG IV SCH ×2 (00:18→01:42)
[2021-02-21 00:49] LABS: Partial Thromboplastin Ratio 0.9; Partial Thromboplastin Time 23.1 Seconds (21.0-31.0); Prothrombin Time 10.6 Seconds (9.0-12.0)
[2021-02-21] MEDS: SODIUM CHLORIDE 0.9% 1000ML 1,000 ML IV SCH ×2 (01:48→11:40)
--- NOTE | 2021-02-21 02:09 | Critical Care Consultation ---
Date of Consultation February 21, 2021 Assessment & Plan (1) Admitted to intensive care unit: Reason Critically Ill: 70-year-old female admitted with hypertensive urgency with subsequent onset of CVA S/S who is s/p TPA administration. Patient is COVID-19 positive. NEURO - * CAM ICU: NEGATIVE * CVA: * On admission, patient with facial droop LEFT lower extremity weakness, and visual disturbance. * Status post TPA administration. * Post 24-hour TPA orders. * Serial neuro checks. * 24-hour post CT. * Permissive hypertension per teleneurology - SBP <180, DBP <100 * Consult neurology. CARDIAC/VASCULAR - * Hypertensive Urgency: * Hydralazine PRN. * Consider nicardipine gtt for its titratable parameters as to not lower the blood pressure too acutely. * Monitor on telemetry. RESPIRATORY - * FRANCESCA: * CPAP per home settings at night. GI/NUTRITION - * Lower abdominal pain on exam: * Acute findings concerning s/p TPA administration. * Will perform CT w/ contrast to assess for possible bleed s/p TPA administration. RENAL/LYTES - * No significant electrolyte derangements. - * No concerns at this time. ENDO - * DMII * BSGs per unit protocol. ISS --> gtt per unit policy. HEME - * Stable H&H * Monitor for s/s bleeding s/p TPA administration. ID - * Covid-19 Positive test: * Thankfully, patient w/o typical sequela of symptoms at this time. * Monitor closely for any changes. LINES/IV ACCESS - * PIVs x2 DVT PROPHYLAXIS - * Hold on chemoprophylaxis s/p TPA administration. * SCDs I have personally spent 40 minutes of critical care time in the direct management of this patient. This is a life/limb threatening event. This includes time spent evaluating patient, direct bedside care, chart review, placing orders, interpretation of diagnostic studies, discussion with consultants, patient, and family members, as well as other required patient management activities. This time is exclusive of all separately billable procedures, and teaching time and separate from and in addition to any other critical care service time. Thank you for allowing us to participate in the care of this patient. Please refer to my attending physician's documentation for any further recommendations. (2) CVA (cerebral vascular accident): (3) Hypertensive urgency: (4) Diabetes mellitus type 2 in obese: (5) COVID-19: (6) Headache: (7) Hyperlipidemia: (8) FRANCESCA on CPAP: (9) Obesity (BMI 30.0-34.9): (10) CKD (chronic kidney disease) stage 3, GFR 30-59 ml/min: History of Present Illness Attending Physician: Joseph Alberto MD History of Present Illness Patient is a 70-year-old female with a significant past medical history of hypertension, hyperlipidemia, diabetes, obstructive sleep apnea, CKD, and obesity. The patient had onset of temporal headache today and presented to the emergency department for her ongoing symptoms. During assessment, the patient was noted to be extremely hypertensive. Her symptoms did not resolve with typical headache cocktail and completely resolved after the administration of hydralazine and correction of blood pressure. Patient was admitted on the basis of hypertensive urgency. Patient was screened for COVID-19 and found to be positive. She is asymptomatic to this point. She was admitted to the Covid unit, and shortly after arrival, the patient was noted to have elevated blood pressure, facial droop, and left-sided weakness. Apparently, she was having some visual deficits on the LEFT side as well. Stroke alert was called and patient received TPA. Her status is subsequently changed ICU level given TPA administration. Upon evaluation of the patient, she is awake, alert, and oriented. She is obviously tired, but otherwise without acute apparent findings on exam. She states that her headache has resolved. She feels as though her symptoms have improved. She is complaining of some mild abdominal discomfort which is new. Otherwise, she offers no acute complaints. Allergies Allergy/AdvReac Type Severity Reaction Status Date / Time amoxicillin Allergy Severe RASH AND Unverified 02/20/21 15:07 UPSET STOMACH clavulanic acid Allergy Severe RASH AND Unverified 02/20/21 15:07 UPSET STOMACH pioglitazone Allergy Severe . Unverified 02/20/21 15:07 Home Medications Medication Instructions Recorded Confirmed Type amlodipine 5 mg tablet 5 mg PO DAILY 02/20/21 02/20/21 History ascorbic acid (vitamin C) 250 mg 250 mg PO DAILY 02/20/21 02/20/21 History tablet (Vitamin C) aspirin 81 mg tablet,delayed 81 mg PO DAILY 02/20/21 02/20/21 History release atenolol 50 mg-chlorthalidone 25 1 tab PO DAILY 02/20/21 02/20/21 History mg tablet atorvastatin 20 mg tablet 20 mg PO DAILY 02/20/21 02/20/21 History calcium carbonate-vitamin D3 600 1 tab PO DAILY 02/20/21 02/20/21 History mg(1,500 mg)-400 unit chewable tablet (Calcium 600 with Vitamin D3) cyanocobalamin (vitamin B-12) 100 100 mcg PO DAILY 02/20/21 02/20/21 History mcg tablet fenofibrate 160 mg tablet 160 mg PO DAILY 02/20/21 02/20/21 History glimepiride 4 mg tablet 4 mg PO DAILY 02/20/21 02/20/21 History magnesium aspartate HCl 61 mg (615 61 mg PO DAILY 02/20/21 02/20/21 History mg) tablet,delayed release nortriptyline 10 mg capsule 10 - 20 mg PO HS PRN 02/20/21 02/20/21 History omega 1-grq-yac-fish oil 1,200 mg 2 cap PO DAILY 02/20/21 02/20/21 History (144 mg-216 mg) capsule (Fish Oil) sitagliptin 50 mg-metformin 1,000 1 tab PO BID 02/20/21 02/20/21 History mg tablet (Janumet) Patient History Medical History CKD (chronic kidney disease) stage 3, GFR 30-59 ml/min Diabetes Diverticulosis Hyperlipidemia Hypertension Obesity (BMI 30.0-34.9) FRANCESCA on CPAP Surgical History Hx of cholecystectomy No pertinent past surgical history S/P meniscectomy Social History Smoking Status: Never smoker Second Hand Exposure: No; Do You Dip or Chew Tobacco: No; Tobacco Cessation Education Requested by Patient: No Hx Alcohol Use: No Hx Substance Use: No Preferred Language: Gabonese Communication Ability: Effective Slat Basket Top Maker Required: No Beliefs That Will Affect Care: None Current Living Situation: Spouse Other Information That Helps Us Care for You: No Feels Safe at Home: Yes Safety Concerns: Feels Safe At This Time Assistive Devices: CPAP and Glasses Review of Systems Review of Systems: A complete 10 point review of systems was reviewed with the patient with pertinent positives and negatives as per history of present illness. All else were negative. Physical Exam Physical Exam: VITAL SIGNS - Vital signs and nursing notes were reviewed. GENERAL - 70-year-old female appearing her stated age who is in no acute distress. Communicates well with provider and answers questions appropriately. HEAD - Normocephalic, Atraumatic. EYES - PERRL with EOMI bilaterally. Sclera anicteric. Palpebral conjunctiva pink and moist with no injection noted. EARS - No deformities of external structures noted on gross examination bilaterally. NOSE - Midline and without cyanosis. No epistaxis or purulent drainage noted. MOUTH/OROPHARYNX - Without perioral cyanosis. Buccal mucosa pink and moist and without leukoplakia. Tongue midline with equal elevation of palate bilaterally. NECK - Neck with FROM. Supple to palpation. No nuchal rigidity. LUNGS - Chest wall symmetric without accessory muscle use, intercostals retractions, or central cyanosis. Normal vesicular breath sounds CTA B/L. No wheezes, rales, or rhonchi appreciated. CARDIAC - RRR with S1/S2. No murmur, rubs, or gallops appreciated. ABDOMEN - Abdominal contour obese without pulsations or visible masses. BS normoactive all four quadrants. Moderate TTP in the Lower abdomen bilaterally. EXTREMITIES - No pretibial edema present. +3/5 radial and dorsalis pedis pulses palpated throughout. +5/5 strength noted in UE/LE bilaterally. NEUROLOGIC - Cranial nerves II through XII grossly intact. Sensory intact to light touch throughout. Patellar reflexes +2/4. Patient able to perform rapid alternating movements appropriately. Negative Pronator Drift. PSYCH - A&Ox3 and cooperates fully with examiner. Results & Data Results & Data ([facility]) Vital Signs (Past 12 Hours) Vital Signs Temp Pulse Pulse Resp BP BP Pulse Ox 02/21/21 02:04 58 L 18 94 02/21/21 01:59 36.8 C 74 13 187/72 H 93 02/21/21 01:52 36.8 C 58 L 14 159/72 H 93 02/21/21 01:37 36.9 C 68 13 145/79 H 92 02/21/21 01:22 36.9 C 70 15 161/89 H 93 02/21/21 01:17 36.8 C 71 15 187/72 H 92 02/21/21 01:07 36.8 C 68 14 134/73 92 02/21/21 00:52 36.8 C 57 L 14 140/75 92 02/21/21 00:37 36.8 C 67 15 145/82 H 92 02/21/21 00:22 58 L 15 158/71 H 84 L 02/21/21 00:07 58 L 18 184/71 H 93 02/20/21 21:04 36.7 C 76 14 165/111 H 96 02/20/21 20:28 37.9 C H 02/20/21 20:21 67 78 21 162/112 H 94 02/20/21 16:00 57 L 19 159/82 H 97 02/20/21 15:30 56 L 18 156/73 H 96 02/20/21 15:02 120 H 10 L 02/20/21 14:40 54 L 16 94 02/20/21 14:33 56 L 23 97 02/20/21 14:10 53 L 14 93 Coding Level of Care Code Critical Care 1st 30-74 mins Diagnoses Admitted to intensive care unit Z78.9 CVA (cerebral vascular accident) I63.9 Hypertensive urgency I16.0 Diabetes mellitus type 2 in obese E11.69; E66.9 COVID-19 U07.1 Headache R51.9 Headache chronicity pattern: acute headache Headache type: unspecified Intractability: not intractable Hyperlipidemia E78.5 FRANCESCA on CPAP G47.33; Z99.89 Obesity (BMI 30.0-34.9) E66.9 CKD (chronic kidney disease) stage 3, GFR 30-59 ml/min N18.30 Time Spent (min) 40 (1) Headache Headache chronicity pattern: acute headache Headache type: unspecified Intractability: not intractable Qualified Code(s): R51.9 - Headache, unspecified
[2021-02-21] MEDS: amLODIPine BESYLATE 5 MG TAB PO SCH ×3 (02:20→20:48)
[2021-02-21] MEDS ORDERED: OPTIRAY 320 100ml IV ONE (03:59)
[2021-02-21] MEDS: INSULIN ASPART 100 UNITS/ML 3 ML PEN SC SCH ×5 (04:48→20:48)
--- NOTE | 2021-02-21 07:17 | CT Scan Report ---
CT SCAN OF THE BRAIN WITHOUT IV CONTRAST CLINICAL HISTORY: Strokelike symptoms. COMPARISON STUDY: CT of the brain performed earlier the same day 02/20/2021. TECHNIQUE: Unenhanced axial CT scan of the brain is performed from the vertex to the skull base. A do se lowering technique was utilized adhering to the principles of ALARA. FINDINGS: Brain parenchyma: There are age-related involutional changes noting mild to moderate subcortical and periventricular microangiopathic change. A chronic infarct is noted in the left cerebellar hemispher e. There is no hemorrhage, mass effect, or evidence of acute territorial ischemia by CT criteria. Gra y-white matter differentiation is preserved. No extra-axial fluid collection is seen. Ventricles, sulci, cisterns: Prominent secondary to involutional change. Intracranial vasculature: There is atherosclerotic calcification of the cavernous carotid and vertebr al arteries. Calvarium: Unremarkable. Sinuses and mastoids: The visualized paranasal sinuses are clear. There is trace right mastoid effusi on. The left mastoid air cells are well pneumatized. Orbits: The bony orbits are grossly intact. IMPRESSION: There is no hemorrhage, mass effect, or evidence of acute territorial ischemia by CT melo rogers. ACT 112: Negative or not required by law. Electronically signed by: Mark Hong M.D. 02/21/2021 7:16 AM
[2021-02-21] MEDS ORDERED: INSULIN ASPART 100 UNITS/ML 3 ML PEN SC SCH (07:30)
--- NOTE | 2021-02-21 07:34 | CT Scan Report ---
CT ANGIOGRAM OF THE NECK CLINICAL HISTORY: Strokelike symptoms. COMPARISON STUDY: No priors. TECHNIQUE: Following the IV administration of 120 of Optiray 320, CT angiogram of the neck was perfor med from the aortic arch to the skull base. Images are reviewed in the axial, sagittal, and coronal p lanes. 3-D MIPS images are created and assessed. IV contrast was administered without complication. A ll measurements were calculated based on NASCET criteria. A dose lowering technique was utilized adh ering to the principles of ALARA. CT DOSE: 1653.01 mGy.cm FINDINGS: Thoracic aorta: Visualized portions of the thoracic aorta are normal in caliber. The aortic arch demo nstrates standard 3-vessel anatomy. Right carotid arterial system: The right common carotid artery is widely patent, as are the right int ernal and external carotid arteries. Calcified plaque is noted in the carotid bulb. Left carotid arterial system: The left common carotid artery is widely patent, as are the left internet marketing strategist al and external carotid arteries. Mild calcified plaque is seen in the carotid bulb. Vertebral arteries: The vertebral arteries are widely patent bilaterally and codominant in the neck. Subclavian arteries: Widely patent bilaterally. Intracranial vasculature: There is advanced atherosclerotic calcification of the cavernous carotid ar teries. Intracranial vessels at the skull base are patent as imaged. Jugular veins: Widely patent bilaterally. Brain parenchyma: The visualized brain parenchyma the skull base is within normal limits. Lung apices: A calcified granuloma is noted in the right upper lobe. Partially visualized upper lobe lung parenchyma otherwise appears clear. Soft tissues: The visualized pharyngeal soft tissues are normal in appearance noting angiographic pha se technique. The oropharyngeal airway appears widely patent. The salivary and thyroid glands are nor mal in appearance. No cervical lymphadenopathy is seen. There are calcified tonsilliths. Skeletal structures: The skeletal structures are osteopenic. The visualized calvarium at the skull ba se appears intact. The imaged cervical spine is maintained noting multilevel spondylosis. No lytic or blastic lesion is identified. Sinuses and mastoids: The visualized paranasal sinuses are clear. There are trace bilateral mastoid e ffusions. IMPRESSION: Unremarkable CT angiogram of the neck. ACT 112: Negative or not required by law. Electronically signed by: Mark Hong M.D. 02/21/2021 7:33 AM
[2021-02-21] MEDS: ATORVASTATIN 20 MG TAB PO SCH (07:44)
[2021-02-21] MEDS: ATENOLOL 50 MG TABLET PO SCH (07:45)
[2021-02-21] MEDS: CHLORTHALIDONE 25 MG TAB PO SCH (07:45)
--- NOTE | 2021-02-21 07:49 | CT Scan Report ---
CT angio head w con CLINICAL HISTORY: cva TECHNIQUE: CT angiography of the head was performed following intravenous administration of iodinated contrast. Automated dose lowering techniques and/or adjustment according to patient size were utiliz ed for this examination. Comparison: None available at the time of this dictation. FINDINGS: CTA Head: The anterior and posterior cerebral circulations are patent. No hemodynamically significan t stenosis, aneurysm, dissection, or arteriovenous malformation is shown. Atherosclerotic disease is noted. IMPRESSION: No occlusion, hemodynamically significant stenosis, aneurysm, dissection, or arteriovenous malformati on in the major intracranial arteries. Assessment of stenosis of the internal carotid arteries is based on NASCET criteria. ACT 112: Negative or not required by law. Electronically signed by: Emile Haley M.D. 02/21/2021 7:48 AM
[2021-02-21] MEDS ORDERED: ASPIRIN 81 MG ECTAB PO SCH (09:00)
[2021-02-21] MEDS ORDERED: Nursing to Pharmacy Communication SCH (09:00)
--- NOTE | 2021-02-21 09:03 | CT Scan Report ---
CT abd pelvis IV con only CLINICAL HISTORY: abd pain s/p TPA admin TECHNIQUE: Helical axial images of the abdomen and pelvis were obtained and displayed. Automated dose lowering techniques and/or adjustment according to patient size were utilized for this exam. This e xam was performed with intravenous contrast. COMPARISON: Comparison is made to CT abdomen pelvis 11/25/2016 FINDINGS: Lower chest: Bibasilar atelectasis is seen. Liver: Unremarkable. No focal lesions are seen. Gallbladder and biliary tree: Patient is status post cholecystectomy. Physiologic prominence of the b iliary ducts is noted. Pancreas: Unremarkable, no focal lesions. Spleen: Unremarkable. Adrenals: Unremarkable. Kidneys and ureters: Subcentimeter hypodensities are too small to characterize. Bladder: Unremarkable. Reproductive organs: Unremarkable. Bowel: Diverticulosis is seen without evidence of diverticulitis. The appendix is normal. Lymph nodes Retroperitoneal: Unremarkable. Mesenteric: Unremarkable. Pelvic: Unremarkable. Peritoneum: Normal Vessels: Atherosclerotic calcifications are seen. Abdominal wall: Unremarkable. Bones: Degenerative changes in the visualized spine. IMPRESSION: No acute abnormalities. In particular no evidence of acute hemorrhage. ACT 112: Negative or not required by law. Electronically signed by: Emile Haley M.D. 02/21/2021 9:02 AM
--- NOTE | 2021-02-21 10:28 | Hospitalist Progress Note ---
Date of Service February 21, 2021 Assessment & Plan Admission and Anticipated Discharge Date Admission Date: February 20, 2021 Subjective Stroke alert was called as patient seemed to have mild slurred speech and vision problem in lefy eye. Last well known was 9pm. On exam alert and oriented but possible mild slurred speech and also left side neglect and left eye vision problem.Initial imaging studies with ct head, CTA head and neck were ok. [place] Neurologist recommended TPA. Started on insulin drip for better glucose control. BP is acceptable now. Holding aspirin as per tpa protocol. Transferred to ICU. Consult Neurology. Close monitor. Results & Data Results & Data ([facility]) Vital Signs (Past 12 Hours) Vital Signs Temp Pulse Pulse Resp BP BP Pulse Ox 02/21/21 08:30 55 L 185/84 H 94 02/21/21 08:20 56 L 96 02/21/21 08:15 36.7 C 02/21/21 08:10 61 96 02/21/21 08:00 64 172/92 H 91 02/21/21 07:45 36.9 C 02/21/21 07:30 61 206/95 H 97 02/21/21 07:15 36.8 C 02/21/21 07:00 78 193/86 H 95 02/21/21 06:37 36.8 C 54 L 16 174/88 H 02/21/21 06:30 70 173/88 H 97 02/21/21 06:07 37.0 C 69 13 154/82 H 97 02/21/21 06:00 98 02/21/21 05:37 36.9 C 53 L 13 164/84 H 94 02/21/21 05:07 36.8 C 58 L 12 191/75 H 93 02/21/21 04:37 36.8 C 65 15 181/98 H 97 02/21/21 04:07 36.8 C 59 L 13 169/82 H 97 02/21/21 03:37 36.8 C 62 14 174/79 H 93 02/21/21 03:07 36.9 C 57 L 13 180/95 H 96 02/21/21 02:37 36.9 C 56 L 12 172/73 H 96 02/21/21 02:07 36.8 C 58 L 15 159/72 H 97 02/21/21 02:04 58 L 18 94 02/21/21 01:59 36.8 C 74 13 187/72 H 93 02/21/21 01:52 36.8 C 58 L 14 159/72 H 93 02/21/21 01:37 36.9 C 68 13 145/79 H 92 02/21/21 01:22 36.9 C 70 15 161/89 H 93 02/21/21 01:17 36.8 C 71 15 187/72 H 92 02/21/21 01:07 36.8 C 68 14 134/73 92 02/21/21 00:52 36.8 C 57 L 14 140/75 92 02/21/21 00:37 36.8 C 67 15 145/82 H 92 02/21/21 00:22 58 L 15 158/71 H 84 L 02/21/21 00:07 58 L 18 184/71 H 93
--- NOTE | 2021-02-21 12:00 | Neurology Consultation ---
Date of Consultation February 21, 2021 Assessment & Plan (1) Stroke-like symptoms: 1. CT head with no evidence stroke 2. CTA head and neck no occlusion or significant stenosis 3. MRi brain with and without unless contraindicated 4. tPa protocol to start plavix 75 mg and aspirin 81 mg daily 5. TTE for cardiac source 6. PT/OT/ speech for discharge needs 7. optimize HTN HLD DM LDL <70 (2) Hypertensive urgency: Supervising Physician Co-Signing Physician Notes I have seen and discussed above patient with Dr Vanita Barrera, neurology. Patient seen and examined history and images reviewed patient came into the hospital hypotensive with a headache and felt somewhat off has difficulty just explaining that. Having reviewed the hospital records apparently she was in the emergency room being treated for hypertensive emergency and was brought to the floor and then noted to have a facial droop on the left impaired vision and left-sided weakness. The patient does not recall that. She does report that the headache that it occurred was right hemicranial [id number] [id number] 896% the patient is awake and alert no right left confusion naming repetition some three-step commands are normal. Pupils are equal no field cut normal motility although the patient has some congenital XO phoria. No facial asymmetry facial anesthesia no dysarthria motor 5 out of 5 no drift normal rapid alternating movements. Symmetric reflexes downgoing toes. Gpdefm-sc-ndyx and zdkq-nd-[id number] are normal sensation is intact to light touch gait was not tested She was otherwise well she sounds as if she has a cephalgias migrainous phen omenon in that she has visual phenomenon without headache that tends to last 15 minutes or so. Her mother and her sister have the same. The patient has never had a stroke or transient ischemic attack. No family history of the same she does not smoke or drink. She takes aspirin at home. She is otherwise been well no cough fever chills sweats although she tested positive for Covid. There is no history of rheumatic fever. The patient was given TPA. There appear to be no ongoing neurologic symptoms. Patient indicates her headache is much improved but if she gets upset she has a mild bifrontal headache. Impression presumed transient ischemic attack less likely migrainous phenomenon plan MRI brain. Echocardiography telemetric monitoring monitoring specialist for 2 weeks gradual control of blood pressure avoiding hypotension. Goal LDL 70 or less good control of diabetes. Dual antiplatelet therapy once cleared per protocol History of Present Illness Reason for Consultation: CVA Requesting Physician: Elke Cochran MD Attending Physician: Elke Cochran MD History of Present Illness Li is a 70 year old female with PMH-HTN, HLD, DM 2, not on insulin, CKD stage III, FRANCESCA on CPAP, obesity, who presented with a headache 02/20/2021 [facility]. She worked with PT for her chronic right hip pain, when she developed right-sided headache. She took Tylenol at home, however as symptoms did not resolve. In ED CT scan of head was negative, and she also received " headache cocktail" which included Compazine, magnesium, Decadron, Benadryl. Her symptoms however did not improve much. Her blood pressure was also quite elevated, systolic blood pressure over 200 when she presented to ED. She received 10 IV of hydralazine which helped symptoms significantly. She usually does not have headaches however her blood pressures been running on the higher side.She had injection done for her sacroiliac joint pain, and at that time her blood pressure was elevated, and it was attributed to pain. She was also started on oxycodone she has been having issues with her right hip pain since September after she took a long driving trip with her family.Her calcium is also slightly elevated, and potassium slightly low.She was noted to have mild slurred speech, and neglect to the left and given tPA in the ED and developed some abdominal pain. A CT abd/pelvis was done with no abnormalities or bleeding. She was also found to be covid +. Allergies Allergy/AdvReac Type Severity Reaction Status Date / Time amoxicillin Allergy Severe RASH AND Unverified 02/20/21 15:07 UPSET STOMACH clavulanic acid Allergy Severe RASH AND Unverified 02/20/21 15:07 UPSET STOMACH pioglitazone Allergy Severe . Unverified 02/20/21 15:07 Home Medications Medication Instructions Recorded Confirmed Type amlodipine 5 mg tablet 5 mg PO DAILY 02/20/21 02/20/21 History ascorbic acid (vitamin C) 250 mg 250 mg PO DAILY 02/20/21 02/20/21 History tablet (Vitamin C) aspirin 81 mg tablet,delayed 81 mg PO DAILY 02/20/21 02/20/21 History release atenolol 50 mg-chlorthalidone 25 1 tab PO DAILY 02/20/21 02/20/21 History mg tablet atorvastatin 20 mg tablet 20 mg PO DAILY 02/20/21 02/20/21 History calcium carbonate-vitamin D3 600 1 tab PO DAILY 02/20/21 02/20/21 History mg(1,500 mg)-400 unit chewable tablet (Calcium 600 with Vitamin D3) cyanocobalamin (vitamin B-12) 100 100 mcg PO DAILY 02/20/21 02/20/21 History mcg tablet fenofibrate 160 mg tablet 160 mg PO DAILY 02/20/21 02/20/21 History glimepiride 4 mg tablet 4 mg PO DAILY 02/20/21 02/20/21 History magnesium aspartate HCl 61 mg (615 61 mg PO DAILY 02/20/21 02/20/21 History mg) tablet,delayed release nortriptyline 10 mg capsule 10 - 20 mg PO HS PRN 02/20/21 02/20/21 History omega 0-vym-edx-fish oil 1,200 mg 2 cap PO DAILY 02/20/21 02/20/21 History (144 mg-216 mg) capsule (Fish Oil) sitagliptin 50 mg-metformin 1,000 1 tab PO BID 02/20/21 02/20/21 History mg tablet (Janumet) Patient History Medical History CKD (chronic kidney disease) stage 3, GFR 30-59 ml/min Diabetes Diverticulosis Hyperlipidemia Hypertension Obesity (BMI 30.0-34.9) FRANCESCA on CPAP Surgical History Hx of cholecystectomy No pertinent past surgical history S/P meniscectomy Social History Smoking Status: Never smoker Second Hand Exposure: No; Do You Dip or Chew Tobacco: No; Tobacco Cessation Education Requested by Patient: No Hx Alcohol Use: No Hx Substance Use: No Preferred Language: Greek Communication Ability: Effective Aircraft Instrument Engineer Required: No Beliefs That Will Affect Care: None Current Living Situation: Spouse Other Information That Helps Us Care for You: No Feels Safe at Home: Yes Safety Concerns: Feels Safe At This Time Assistive Devices: Cane and Glasses Results & Data ([facility]) Vital Signs (Past 12 Hours) Vital Signs Temp Pulse Pulse Resp BP BP Pulse Ox 02/21/21 10:30 58 L 144/71 H 95 02/21/21 10:00 62 95 02/21/21 09:30 96 02/21/21 09:00 73 152/62 H 96 02/21/21 08:30 55 L 185/84 H 94 02/21/21 08:20 56 L 96 02/21/21 08:15 36.7 C 02/21/21 08:10 61 96 02/21/21 08:00 64 172/92 H 91 02/21/21 07:45 36.9 C 02/21/21 07:30 61 206/95 H 97 02/21/21 07:15 36.8 C 02/21/21 07:00 78 193/86 H 95 02/21/21 06:37 36.8 C 54 L 16 174/88 H 02/21/21 06:30 70 173/88 H 97 02/21/21 06:07 37.0 C 69 13 154/82 H 97 02/21/21 06:00 98 02/21/21 05:37 36.9 C 53 L 13 164/84 H 94 02/21/21 05:07 36.8 C 58 L 12 191/75 H 93 02/21/21 04:37 36.8 C 65 15 181/98 H 97 02/21/21 04:07 36.8 C 59 L 13 169/82 H 97 02/21/21 03:37 36.8 C 62 14 174/79 H 93 02/21/21 03:07 36.9 C 57 L 13 180/95 H 96 02/21/21 02:37 36.9 C 56 L 12 172/73 H 96 02/21/21 02:07 36.8 C 58 L 15 159/72 H 97 02/21/21 02:04 58 L 18 94 02/21/21 01:59 36.8 C 74 13 187/72 H 93 02/21/21 01:52 36.8 C 58 L 14 159/72 H 93 02/21/21 01:37 36.9 C 68 13 145/79 H 92 02/21/21 01:22 36.9 C 70 15 161/89 H 93 02/21/21 01:17 36.8 C 71 15 187/72 H 92 02/21/21 01:07 36.8 C 68 14 134/73 92 02/21/21 00:52 36.8 C 57 L 14 140/75 92 02/21/21 00:37 36.8 C 67 15 145/82 H 92 02/21/21 00:22 58 L 15 158/71 H 84 L 02/21/21 00:07 58 L 18 184/71 H 93 Laboratory Results Abnormal lab results 02/20/21 02/20/21 02/20/21 Range/Units 13:37 13:37 17:36 MPV 10.6 H (7.4-10.4) fL Lymph # (Auto) (1.2-3.4) K/uL Potassium 3.2 L (3.5-5.1) mmol/L BUN 21 H (7-18) mg/dl Glucose 222 H (70-99) mg/dl POC Glucose (70-99) mg/dl Calcium 11.2 H (8.5-10.1) mg/dl Alkaline Phosphatase 41 L (45-117) U/L C-Reactive Protein 0.44 H (0-0.29) mg/dl Albumin 3.3 L (3.4-5.0) gm/dl SARS-CoV-2 (PCR) POSITIVE A* (Negative) 02/20/21 02/20/21 02/20/21 Range/Units 21:48 21:50 21:52 MPV (7.4-10.4) fL Lymph # (Auto) (1.2-3.4) K/uL Potassium (3.5-5.1) mmol/L BUN (7-18) mg/dl Glucose (70-99) mg/dl POC Glucose 261 H 292 H 306 H* (70-99) mg/dl Calcium (8.5-10.1) mg/dl Alkaline Phosphatase (45-117) U/L C-Reactive Protein (0-0.29) mg/dl Albumin (3.4-5.0) gm/dl SARS-CoV-2 (PCR) (Negative) 02/20/21 02/20/21 02/20/21 Range/Units 22:50 22:50 23:32 MPV 10.6 H (7.4-10.4) fL Lymph # (Auto) 0.73 L (1.2-3.4) K/uL Potassium (3.5-5.1) mmol/L BUN 19 H (7-18) mg/dl Glucose 274 H (70-99) mg/dl POC Glucose 255 H (70-99) mg/dl Calcium (8.5-10.1) mg/dl Alkaline Phosphatase (45-117) U/L C-Reactive Protein (0-0.29) mg/dl Albumin (3.4-5.0) gm/dl SARS-CoV-2 (PCR) (Negative) 02/21/21 02/21/21 02/21/21 Range/Units 01:26 05:45 08:06 MPV (7.4-10.4) fL Lymph # (Auto) (1.2-3.4) K/uL Potassium (3.5-5.1) mmol/L BUN (7-18) mg/dl Glucose (70-99) mg/dl POC Glucose 254 H 199 H 158 H (70-99) mg/dl Calcium (8.5-10.1) mg/dl Alkaline Phosphatase (45-117) U/L C-Reactive Protein (0-0.29) mg/dl Albumin (3.4-5.0) gm/dl SARS-CoV-2 (PCR) (Negative) 02/21/21 Range/Units 12:02 MPV (7.4-10.4) fL Lymph # (Auto) (1.2-3.4) K/uL Potassium (3.5-5.1) mmol/L BUN (7-18) mg/dl Glucose (70-99) mg/dl POC Glucose 185 H (70-99) mg/dl Calcium (8.5-10.1) mg/dl Alkaline Phosphatase (45-117) U/L C-Reactive Protein (0-0.29) mg/dl Albumin (3.4-5.0) gm/dl SARS-CoV-2 (PCR) (Negative) Diagnostic Findings CT head 02/20/2021-There is no hemorrhage, mass effect, or evidence of acute territorial ischemia by CT criteria. CTA head-No occlusion, hemodynamically significant stenosis, aneurysm, dissection, or arteriovenous malformation in the major intracranial arteries. CTA neck- Unremarkable CT angiogram of the neck. CT abd/pelvis-No acute abnormalities. In particular no evidence of acute hemorrhage.
--- NOTE | 2021-02-21 13:43 | Hospitalist Progress Note ---
Date of Service February 21, 2021 Assessment & Plan (1) Stroke-like symptoms: Plan: Presented to ER with hypertensive urgency with a blood pressure of more than 200 systolic associated with headache She was noted to have strokelike symptoms with mild slurred speech and vision problem in the left eye which was noted around work up to 9 PM on 02/20/2021 [facility] was consulted and she received TPA Her symptoms are totally resolved Appreciate input and recommendation from floral design teacher Appreciate neurology input and recommendation (2) COVID-19: Plan: She is fully vaccinated She was noted to be positive for COVID-19 virus infection Remains asymptomatic and has not been getting any medicine for Covid 19 virus infection (3) Hypertensive urgency: Plan: Presented to ER with very high systolic blood pressure of more than 200 associated with headache Blood pressure is reasonably controlled and are maintaining at around 160 systolic (4) Headache: Plan: - Presents w/ VELEZ in ER - CT head negative - given Mag, decadron, benadryl, compazine w/o much improvement of VELEZ - in ED BP 218/87, 181/86 - received 10 IV hydralazine in ED w/ improvement of VELEZ - current BP 159/82 - at home on atenolol-chlorthalidone - cont. current dose for now (even though chlorthalidone may contribute to her hypercalcemia) - amlodipne 5 mg - likely will increase to 10 mg daily - Per primary care note, patient developed cough with RENE inhibitors - IV hydralazine prn -Denies any more headache (5) Diabetes mellitus type 2 in obese: Plan: - last Hgb A1c 8.1% in September 2020 - hold home PO medications - SSI while inpt - follow up as outpt (6) Hyperlipidemia: Plan: - cont. atorvastatin (7) FRANCESCA on CPAP: Plan: - cont. CPAP -Patient's daughter says she can bring one from home (8) Obesity (BMI 30.0-34.9): Plan: - provide counseling (9) CKD (chronic kidney disease) stage 3, GFR 30-59 ml/min: Plan: - baseline Cr 1.2 - currently at baseline - try to avoid nephrotoxic agents - NSAIDs, contrast - cont. to monitor Hypercalcemia -Ca 11.2 -Hold home calcium supplement -Continue IV fluids and repeat calcium level in the morning -Obtain PTH level - Hypokalemia - K 3.2 -replete and monitor-normalized DVT ppx : SCDs Admission and Anticipated Discharge Date Admission Date: February 20, 2021 Subjective 02/21/2021 The patient was seen and examined in telemetry unit and in the Covid room She presented to ER with hypertensive urgency associated with headache and noted to have strokelike symptoms last evening and received TPA as per recommended from [facility] Hearts neuro symptoms have resolved and denies any significant symptoms this morning Apparently she was noted to have Covid positive but does not have any symptoms secondary to COVID-19 infection Review of Systems Review of Systems: All systems reviewed and are unremarkable except as noted below Neurologic: Alert, awake and oriented x3. No focal sensory and motor deficit appreciated Physical Exam Physical Exam: Lying in bed comfortably but a little anxious Constitutional: well developed, well nourished, + ill appearing and + obese Eyes: PERRL, conjunctivae normal, anicteric sclerae ENMT: external ear and nose normal, oropharynx normal Neck: trachea midline, no thyromegaly Respiratory: no respiratory distress and no cough Auscultation: lungs clear to auscultation bilaterally; no crackles and no wheezes Cardiovascular: Rate/Rhythm: regular rate and regular rhythm; not tachycardic Heart Sounds: normal S1 and normal S2; no murmur Extremities: + edema (Trace edema bilaterally) Gastrointestinal (Abdomen): Inspection/Auscultation: normal bowel sounds; abdomen not distended Percussion/Palpation: abdomen soft; abdomen nontender Musculoskeletal: No acute arthritis in any joint Neurologic: normal touch/pain/proprioception, CN's II-XI intact bilaterally, normal sensation to monofilament and moves all extremities; no focal motor deficits Psychiatric: A+Ox3, euthymic affect Lymphatic: no cervical or axillary lymphadenopathy Results & Data Results & Data ([facility]) Vital Signs (Past 12 Hours) Vital Signs Temp Pulse Pulse Resp BP BP Pulse Ox 02/21/21 13:00 60 160/73 H 95 02/21/21 12:15 36.9 C 02/21/21 12:00 55 L 130/64 96 02/21/21 11:50 55 L 96 02/21/21 11:40 55 L 97 02/21/21 11:30 56 L 147/65 H 96 02/21/21 11:20 56 L 97 02/21/21 11:10 58 L 96 02/21/21 11:00 67 162/69 H 95 02/21/21 10:50 67 97 02/21/21 10:40 57 L 96 02/21/21 10:30 58 L 144/71 H 95 02/21/21 10:00 62 95 02/21/21 09:30 96 02/21/21 09:00 73 152/62 H 96 02/21/21 08:30 55 L 185/84 H 94 02/21/21 08:20 56 L 96 02/21/21 08:15 36.7 C 02/21/21 08:10 61 96 02/21/21 08:00 64 172/92 H 91 02/21/21 07:45 36.9 C 02/21/21 07:30 61 206/95 H 97 02/21/21 07:15 36.8 C 02/21/21 07:00 78 193/86 H 95 02/21/21 06:37 36.8 C 54 L 16 174/88 H 02/21/21 06:30 70 173/88 H 97 02/21/21 06:07 37.0 C 69 13 154/82 H 97 02/21/21 06:00 98 02/21/21 05:37 36.9 C 53 L 13 164/84 H 94 02/21/21 05:07 36.8 C 58 L 12 191/75 H 93 02/21/21 04:37 36.8 C 65 15 181/98 H 97 02/21/21 04:07 36.8 C 59 L 13 169/82 H 97 02/21/21 03:37 36.8 C 62 14 174/79 H 93 02/21/21 03:07 36.9 C 57 L 13 180/95 H 96 02/21/21 02:37 36.9 C 56 L 12 172/73 H 96 02/21/21 02:07 36.8 C 58 L 15 159/72 H 97 02/21/21 02:04 58 L 18 94 02/21/21 01:59 36.8 C 74 13 187/72 H 93 02/21/21 01:52 36.8 C 58 L 14 159/72 H 93 02/21/21 01:37 36.9 C 68 13 145/79 H 92 Laboratory Results Short CBC 02/20/21 02/20/21 Range/Units 13:37 22:50 WBC 7.76 7.00 (4.8-10.8) K/uL Hgb 13.8 14.8 (12.0-16.0) g/dL Hct 41.4 43.3 (37-47) % Plt Count 307 320 (130-400) K/uL BMP 02/20/21 02/20/21 13:37 22:50 Sodium 137 136 Potassium 3.2 L 3.7 D Chloride 102 103 Carbon Dioxide 30 25 BUN 21 H 19 H Creatinine 1.18 1.12 Glucose 222 H 274 H Calcium 11.2 H 9.8 Liver Function 02/20/21 Range/Units 13:37 Total Bilirubin 0.5 (0.2-1) mg/dl AST 22 (15-37) U/L ALT 61 (12-78) U/L Alkaline Phosphatase 41 L (45-117) U/L Albumin 3.3 L (3.4-5.0) gm/dl Medications Administered Current Inpatient Medications Acetaminophen (Acetaminophen 325 Mg Tab) 650 mg PO Q4H PRN PRN Reason: Pain or Fever Stop: 03/22/21 16:43 Last Admin: 02/20/21 20:27 Dose: 650 mg Documented by: Amlodipine Besylate (Amlodipine Besylate 5 Mg Tab) 5 mg PO BID ABELARDO Stop: 03/22/21 21:46 Last Admin: 02/21/21 07:44 Dose: 5 mg Documented by: Aspirin (No Aspirin Within 24hrs Of Thrombolytic-Stroke) 1 ea N/A UD ABELARDO Stop: 02/21/21 23:44 Atenolol (Atenolol 50 Mg Tablet) 50 mg PO DAILY ABELARDO Stop: 03/23/21 08:59 Last Admin: 02/21/21 07:45 Dose: 50 mg Documented by: Atorvastatin Calcium (Atorvastatin 20 Mg Tab) 20 mg PO DAILY ABELARDO Stop: 03/23/21 08:59 Last Admin: 02/21/21 07:44 Dose: 20 mg Documented by: Chlorthalidone (Chlorthalidone 25 Mg Tab) 25 mg PO DAILY ABELARDO Stop: 03/23/21 08:59 Last Admin: 02/21/21 07:45 Dose: 25 mg Documented by: Dextrose (Dextrose 50% 50 Ml Syringe) 25 - 50 ml IV UD PRN; Protocol PRN Reason: Hypoglycemia Protocol Stop: 03/22/21 16:59 Glucagon (Glucagon For Inj 1 Mg Vial) 1 mg SQ UD PRN; Protocol PRN Reason: Hypoglycemia Protocol Stop: 03/22/21 16:59 Glucose (Glucose 10 Tabs/Tube) 4 - 8 tabs PO UD PRN; Protocol PRN Reason: Hypoglycemia Protocol Stop: 03/22/21 16:59 Glucose (Glucose 40% Gel 15 Gm Tube) 15 - 30 gm PO UD PRN; Protocol PRN Reason: Hypoglycemia Protocol Stop: 03/22/21 16:59 Hydralazine HCl (Hydralazine Hcl 20 Mg/Ml Vial) 5 mg IV Q4H PRN PRN Reason: SBP> 165 Stop: 03/22/21 17:14 Last Admin: 02/21/21 00:19 Dose: 5 mg Documented by: Insulin Aspart (Insulin Aspart 100 Units/Ml 3 Ml Pen) 0 units SC ACHS ABELARDO Stop: 03/23/21 03:59 Last Admin: 02/21/21 10:01 Dose: 7 units Documented by: Miscellaneous (Carbohydrates For Hypoglycemia ) 15 - 30 gm PO UD PRN PRN Reason: Hypoglycemia Protocol Stop: 03/22/21 16:59 Nortriptyline HCl (Nortriptyline Hcl 10 Mg Cap) 10 mg PO HS PRN PRN Reason: Pain Stop: 03/22/21 21:46 (1) Headache Headache chronicity pattern: acute headache Headache type: unspecified Intractability: not intractable Qualified Code(s): R51.9 - Headache, unspecified
--- NOTE | 2021-02-21 16:56 | Critical Care Progress Note ---
Date of Service February 21, 2021 Assessment & Plan (1) Admitted to intensive care unit: Plan: CompleteReason Critically Ill: 70-year-old female admitted with hypertensive urgency with subsequent onset of CVA S/S who is s/p TPA administration. Patient is COVID-19 positive. Please refer to Preet Palma PA-C note assessment and plan. Patient admitted after midnight. Initial 30 minutes was spent with the patient in discussion and physical examination. 1. Acute CVA: Status post TPA administration at 12:05 AM this morning. No active bleeding. Hemodynamically stable. No abdominal pain. Continue to follow TPA protocol. No need for further imaging at this time. 2. Hypertensive emergency: Continue hydralazine as needed for systolic blood pressure greater than 180. Allow for permissive hypertension due to acute CVA. Patient's home medications including amlodipine, atenolol were restarted this morning. Patient currently maintaining SBP in the 150s. No headache. No lightheadedness or dizziness. No other symptomatic findings. 3. Nutrition: Patient passed her dysphagia screening. Tolerating diabetic/AHA diet. 4. SARs-Cov-2: Positive screening but patient remains asymptomatic. Will check chest x-ray in the morning. Continue to monitor on telemetry. Inasmuch as patient is asymptomatic, no indication for dexamethasone, remdesivir, other medications. Hold chemical prophylaxis for hypercoagulability from COVID-19 as patient received TPA for acute CVA. Disposition: Continue to remain on ICU status for 24 hours post TPA administration. No acute findings at this time. Anticipate downgrade tomorrow. (2) CVA (cerebral vascular accident): (3) Hypertensive urgency: (4) Diabetes mellitus type 2 in obese: (5) COVID-19: (6) Headache: (7) Hyperlipidemia: (8) FRANCESCA on CPAP: (9) Obesity (BMI 30.0-34.9): (10) CKD (chronic kidney disease) stage 3, GFR 30-59 ml/min: Admission and Anticipated Discharge Date Admission Date: February 20, 2021 Supervising Physician Co-Signing Physician Notes I saw and evaluated the patient with Mark Castellon, and agree with findings and plan as documented in the note. Patient seen and examined at bedside. No acute distress, noticeable at night Patient systolic blood pressure was in the one sixties when I saw her She had good strength bilateral upper extremity, no focal deficit appreciated She used her CPAP overnight Plan will be to have a repeat CT head/MRI 24 hours after the TPA Keep systolic blood pressure between 140-160 Please note the above document was generated using voice recognition software. It may contain grammatical, syntax or spelling errors.Any formal questions or concerns about the content, text or information contained within the body of this dictation should be directly addressed to the provider for clarification. Subjective Attending: Dr. Bryan Patient admitted after midnight on 02/21/2021. Additional critical care time as listed below. Patient was seen and examined in room 211. IV fluids were stopped as patient was having more than adequate urine output. Oral intake is sufficient. Patient has no developing symptoms of COVID. Patient has no residual neurological deficits. She denies any headache. She is doing well with bowel and bladder control. She has no observable weaknesses on bilateral upper and lower extremities. Review of Systems Review of Systems: All systems reviewed & are unremarkable except as noted in Subjective Physical Exam Physical Exam: GENERAL : No acute distress EYES: No icterus, gaze conjugate NOSE: No evidence of epistaxis MOUTH: No lesions or candidiasis NECK: Supple LUNGS: CTA B/L, no wheezes, rales or rhonchi HEART: Regular, rate controlled ABDOMEN: Soft, NT, ND, BS Present EXTREMITIES: No LE edema, pedal pulses intact NEURO: A&OX3. No pronator drift. Pupils equal round and reactive to light. Strength is equal and appropriate to bilateral upper and lower extremities. Toes are downgoing bilaterally. Tongue is midline. No facial droop. No slurred speech. No difficulty with word finding. Results & Data Results & Data ([facility]) Vital Signs (Past 12 Hours) Vital Signs Temp Pulse Pulse Resp BP BP Pulse Ox 02/21/21 16:00 58 L 02/21/21 15:50 54 L 92 02/21/21 15:40 95 02/21/21 15:30 60 159/65 H 94 02/21/21 15:00 60 159/92 H 94 02/21/21 14:30 51 L 150/70 H 95 02/21/21 14:15 36.9 C 02/21/21 14:00 59 L 155/74 H 95 02/21/21 13:30 59 L 158/73 H 93 02/21/21 13:00 60 160/73 H 95 02/21/21 12:15 36.9 C 02/21/21 12:00 55 L 130/64 96 02/21/21 11:50 55 L 96 02/21/21 11:40 55 L 97 02/21/21 11:30 56 L 147/65 H 96 02/21/21 11:20 56 L 97 02/21/21 11:10 58 L 96 02/21/21 11:00 67 162/69 H 95 02/21/21 10:50 67 97 02/21/21 10:40 57 L 96 02/21/21 10:30 58 L 144/71 H 95 02/21/21 10:00 62 95 02/21/21 09:30 96 02/21/21 09:00 73 152/62 H 96 02/21/21 08:30 55 L 185/84 H 94 02/21/21 08:20 56 L 96 02/21/21 08:15 36.7 C 02/21/21 08:10 61 96 02/21/21 08:00 64 172/92 H 91 02/21/21 07:45 36.9 C 02/21/21 07:30 61 206/95 H 97 02/21/21 07:15 36.8 C 02/21/21 07:00 78 193/86 H 95 02/21/21 06:37 36.8 C 54 L 16 174/88 H 02/21/21 06:30 70 173/88 H 97 02/21/21 06:07 37.0 C 69 13 154/82 H 97 02/21/21 06:00 98 02/21/21 05:37 36.9 C 53 L 13 164/84 H 94 02/21/21 05:07 36.8 C 58 L 12 191/75 H 93 Laboratory Results 02/20/21 22:50 02/20/21 22:[address] 02/20/21 21:57 CT SCAN OF THE BRAIN WITHOUT IV CONTRAST CLINICAL HISTORY: Strokelike symptoms. COMPARISON STUDY: CT of the brain performed earlier the same day 02/20/2021. TECHNIQUE: Unenhanced axial CT scan of the brain is performed from the vertex to the skull base. A dose lowering technique was utilized adhering to the principles of ALARA. FINDINGS: Brain parenchyma: There are age-related involutional changes noting mild to moderate subcortical and periventricular microangiopathic change. A chronic infarct is noted in the left cerebellar hemisphere. There is no hemorrhage, mass effect, or evidence of acute territorial ischemia by CT criteria. Ramey-white m atter differentiation is preserved. No extra-axial fluid collection is seen. Ventricles, sulci, cisterns: Prominent secondary to involutional change. Intracranial vasculature: There is atherosclerotic calcification of the cavernous carotid and vertebral arteries. Calvarium: Unremarkable. Sinuses and mastoids: The visualized paranasal sinuses are clear. There is trace right mastoid effusion. The left mastoid air cells are well pneumatized. Orbits: The bony orbits are grossly intact. IMPRESSION: There is no hemorrhage, mass effect, or evidence of acute territorial ischemia by CT criteria. ACT 112: Negative or not required by law. Electronically signed by: Mark Hong M.D. 02/21/2021 7:16 AM Head CTA 02/20/21 21:58 CT angio head w con CLINICAL HISTORY: cva TECHNIQUE: CT angiography of the head was performed following intravenous administration of iodinated contrast. Automated dose lowering techniques and/or adjustment according to patient size were utilized for this examination. Comparison: None available at the time of this dictation. FINDINGS: CTA Head: The anterior and posterior cerebral circulations are patent. No hemodynamically significant stenosis, aneurysm, dissection, or arteriovenous malformation is shown. Atherosclerotic disease is noted. IMPRESSION: No occlusion, hemodynamically significant stenosis, aneurysm, dissection, or arteriovenous malformation in the major intracranial arteries. Assessment of stenosis of the internal carotid arteries is based on NASCET criteria. ACT 112: Negative or not required by law. Electronically signed by: Emile Haley M.D. 02/21/2021 7:48 AM Neck CTA 02/20/21 21:58 CT ANGIOGRAM OF THE NECK CLINICAL HISTORY: Strokelike symptoms. COMPARISON STUDY: No priors. TECHNIQUE: Following the IV administration of 120 of Optiray 320, CT angiogram of the neck was performed from the aortic arch to the skull base. Images are reviewed in the axial, sagittal, and coronal planes. 3-D MIPS images are created and assessed. IV contrast was administered without complication. All measurements were calculated based on NASCET criteria. A dose lowering technique was utilized adhering to the principles of ALARA. CT DOSE: 1653.01 mGy.cm FINDINGS: Thoracic aorta: Visualized portions of the thoracic aorta are normal in caliber. The aortic arch demonstrates standard 3-vessel anatomy. Right carotid arterial system: The right common carotid artery is widely patent, as are the right internal and external carotid arteries. Calcified plaque is noted in the carotid bulb. Left carotid arterial system: The left common carotid artery is widely patent, as are the left internal and external carotid arteries. Mild calcified plaque is seen in the carotid bulb. Vertebral arteries: The vertebral arteries are widely patent bilaterally and codominant in the neck. Subclavian arteries: Widely patent bilaterally. Intracranial vasculature: There is advanced atherosclerotic calcification of the cavernous carotid arteries. Intracranial vessels at the skull base are patent as imaged. Jugular veins: Widely patent bilaterally. Brain parenchyma: The visualized brain parenchyma the skull base is within normal limits. Lung apices: A calcified granuloma is noted in the right upper lobe. Partially visualized upper lobe lung parenchyma otherwise appears clear. Soft tissues: The visualized pharyngeal soft tissues are normal in appearance noting angiographic phase technique. The oropharyngeal airway appears widely patent. The salivary and thyroid glands are normal in appearance. No cervical lymphadenopathy is seen. There are calcified tonsilliths. Skeletal structures: The skeletal structures are osteopenic. The visualized calvarium at the skull base appears intact. The imaged cervical spine is mainta ined noting multilevel spondylosis. No lytic or blastic lesion is identified. Sinuses and mastoids: The visualized paranasal sinuses are clear. There are trace bilateral mastoid effusions. IMPRESSION: Unremarkable CT angiogram of the neck. ACT 112: Negative or not required by law. Electronically signed by: Mark Hong M.D. 02/21/2021 7:33 AM Abdomen/Pelvis CT 02/21/21 03:06 CT abd pelvis IV con only CLINICAL HISTORY: abd pain s/p TPA admin TECHNIQUE: Helical axial images of the abdomen and pelvis were obtained and displayed. Automated dose lowering techniques and/or adjustment according to patient size were utilized for this exam. This exam was performed with intravenous contrast. COMPARISON: Comparison is made to CT abdomen pelvis 11/25/2016 FINDINGS: Lower chest: Bibasilar atelectasis is seen. Liver: Unremarkable. No focal lesions are seen. Gallbladder and biliary tree: Patient is status post cholecystectomy. Phy siologic prominence of the biliary ducts is noted. Pancreas: Unremarkable, no focal lesions. Spleen: Unremarkable. Adrenals: Unremarkable. Kidneys and ureters: Subcentimeter hypodensities are too small to characterize. Bladder: Unremarkable. Reproductive organs: Unremarkable. Bowel: Diverticulosis is seen without evidence of diverticulitis. The appendix is normal. Lymph nodes Retroperitoneal: Unremarkable. Mesenteric: Unremarkable. Pelvic: Unremarkable. Peritoneum: Normal Vessels: Atherosclerotic calcifications are seen. Abdominal wall: Unremarkable. Bones: Degenerative changes in the visualized spine. IMPRESSION: No acute abnormalities. In particular no evidence of acute hemorrhage. ACT 112: Negative or not required by law. Electronically signed by: Emile Haley M.D. 02/21/2021 9:02 AM Coding Level of Care Code Critical Care ea addt'l 30 min Diagnoses Admitted to intensive care unit Z78.9 CVA (cerebral vascular accident) I63.9 Hypertensive urgency I16.0 Diabetes mellitus type 2 in obese E11.69; E66.9 COVID-19 U07.1 Headache R51.9 Headache chronicity pattern: acute headache Headache type: unspecified Intractability: not intractable Hyperlipidemia E78.5 FRANCESCA on CPAP G47.33; Z99.89 Obesity (BMI 30.0-34.9) E66.9 CKD (chronic kidney disease) stage 3, GFR 30-59 ml/min N18.30 Time Spent (min) 30 Comment Please see Preet Palma's note for ICU consult (1) Headache Headache chronicity pattern: acute headache Headache type: unspecified Intractability: not intractable Qualified Code(s): R51.9 - Headache, unspecified
[2021-02-21] MEDS ORDERED: GADOBUTROL 65ML VIAL IV ONE (23:38)
[2021-02-22 07:51] LABS: Hematocrit (blood only) 44.7 % (37-47); Hemoglobin 15.1 g/dL (12.0-16.0); Mean Corpuscular Hemoglobin 29.7 pg (25-34); Mean Corpuscular Hgb Conc 33.8 g/dL (32-36); Mean Corpuscular Volume 87.8 fL (80-100); Mean Platelet Volume 10.9 fL (7.4-10.4); Platelet Count 339 K/uL (130-400); RDW Coefficient of Variation 13.2 % (11.5-14.5); RDW Standard Deviation 42.2 fL (36.4-46.3); Red Blood Count 5.09 M/uL (4.2-5.4); White Blood Count 11.54 K/uL (4.8-10.8)
[2021-02-22 08:13] LABS: BUN Creatinine Ratio 19.3 (10-20); Calcium 9.2 mg/dl (8.5-10.1); Creatinine Clr Calc Pharmacy 53.7 ml/min; Est GFR (African American) 61.3 ml/min; Est GFR (Non-African American) 52.9 ml/min; Magnesium 1.7 mg/dl (1.8-2.4); Phosphorus 3.1 mg/dl (2.5-4.9); Potassium 3.5 mmol/L (3.5-5.1)
[2021-02-22] MEDS ORDERED: POTASSIUM CHLORIDE CRTAB 20 MEQ TABCR PO STA (08:30)
[2021-02-22] MEDS: ATORVASTATIN 20 MG TAB PO SCH (08:48)
[2021-02-22] MEDS: ATENOLOL 50 MG TABLET PO SCH (08:48)
[2021-02-22] MEDS: amLODIPine BESYLATE 5 MG TAB PO SCH ×2 (08:48→20:39)
[2021-02-22] MEDS: CHLORTHALIDONE 25 MG TAB PO SCH (08:49)
[2021-02-22] MEDS: MAGNESIUM OXIDE 400 MG TAB PO SCH ×2 (08:55→20:39)
[2021-02-22] MEDS: INSULIN ASPART 100 UNITS/ML 3 ML PEN SC SCH ×4 (08:57→20:40)
--- NOTE | 2021-02-22 10:01 | Magnetic Resonance Report ---
MR brain wo/w con HISTORY: 70 years-old Female CVA s/p TPA acute severe headache with strokelike symptoms. COMPARISON: Head CT 02/20/2021. TECHNIQUE: Multiplanar and multisequence MRI of the brain was obtained both with and without the use of 9 cc Gadavist. FINDINGS: The retort unloader localizer images demonstrate no gross extracranial abnormality. There is a 5 mm focus of ac elizabeth infarct noted within the right occipital lobe on image 11 series 4 demonstrating mildly increased T2/FLAIR signal. Partially empty sella. No acute intracranial hemorrhage, midline shift, abnormal ex tra-axial collection, hydrocephalus or intracranial mass. Encephalomalacia from chronic infarct withi n the inferior left cerebellar hemisphere. No pathologic blooming artifact within the brain parenchym a. Mild involutional changes. Extensive T2/FLAIR hyperintensities are noted throughout the white jaz er. There is no abnormal intra-axial or extra-axial enhancement. Cerebral venous sinuses and major arterial flow voids appear patent. Small mastoid effusions. Mild mu cosal thickening of the paranasal sinuses. The skull, orbits and soft tissues are unremarkable. Disco njugate gaze. IMPRESSION: 1. 5 mm acute lacunar infarct of the right occipital lobe. 2. No acute intracranial hemorrhage, midline shift or acute territorial infarct. 3. Encephalomalacia from chronic infarct of the inferior left cerebellar hemisphere. 4. No abnormal enhancement. 5. Age-related involutional changes with extensive chronic microvascular ischemic disease. ACT 112: Negative or not required by law. The above report was generated using voice recognition software. It may contain grammatical, syntax o r spelling errors. Dictated: 02/22/2021 8:04 AM Transcribed: 02/22/2021 8:43 AM Lorraine [id number] [email or web address]_Shanika Electronically signed by: Alden Madrid M.D. 02/22/2021 9:59 AM
[2021-02-22] MEDS: ASPIRIN 81 MG ECTAB PO SCH (12:43)
--- NOTE | 2021-02-22 13:06 | Neurology Progress Note ---
Date of Service February 22, 2021 Assessment & Plan (1) Stroke-like symptoms: Plan: 1. CT head with no evidence stroke 2. CTA head and neck no occlusion or significant stenosis 3. MRi brain with and without unless contraindicated 4. tPa protocol to start plavix 75 mg and aspirin 81 mg daily continue DAPT x 21 days then plavix 75 mg for life 5. TTE no ASD 6. PT/OT/ speech for discharge needs 7. optimize HTN HLD DM LDL <70 8. ZIO as outpatient (2) Hypertensive urgency: Plan: 1. as above Admission and Anticipated Discharge Date Admission Date: February 20, 2021 Supervising Physician Co-Signing Physician Notes I have discussed above patient with Dr Vanita Barrera, neurology. Patient seen and examined by myself. MRI of the brain shows a tiny infarction in the right occipital lobe. Patient is asymptomatic. Only mild headache today. No new neurologic symptoms. Echo shows no cardiovascular soft source. Patient is awake and alert speech and language are normal affect appropriate. No field cut normal motility facial symmetry. Symmetric strength in the upper and lowers intact light touch in the upper and lowers. Impression transient ischemic attack continue dual antiplatelet therapy for 21 days and then Plavix monotherapy. Recommend checking LDL with goal of 70 or less. Good control of diabetes. Gradual control of blood pressure over time. The patient should see us in follow-up. She will need a Zio patch to exclude atrial fibrillation. I have no objection to her discharge at this point. Rahel Jefferson is a 70 year old female with PMH-HTN, HLD, DM 2, not on insulin, CKD stage III, FRANCESCA on CPAP, obesity, who presented with a headache 02/20/2021 [facility]. She worked with PT for her chronic right hip pain, when she developed right-sided headache. She took Tylenol at home, however as symptoms did not resolve. In ED CT scan of head was negative, and she also received " headache cocktail" which included Compazine, magnesium, Decadron, Benadryl. Her symptoms however did not improve much. Her blood pressure was also quite elevated, systolic blood pressure over 200 when she presented to ED. She received 10 IV of hydralazine which helped symptoms significantly. She usually does not have headaches however her blood pressures been running on the higher side.She had injection done for her sacroiliac joint pain, and at that time her blood pressure was elevated, and it was attributed to pain. She was also started on oxycodone she has been having issues with her right hip pain since September after she took a long driving trip with her family.Her calcium is also slightly elevated, and potassium slightly low.She was noted to have mild slurred speech, and neglect to the left and given tPA in the ED and developed some abdominal pain. A CT abd/pelvis was done with no abnormalities or bleeding. She was also found to be covid +. Results & Data ([facility]) Vital Signs (Past 12 Hours) Vital Signs Temp Pulse Resp BP Pulse Ox 02/22/21 11:53 36.8 C 57 L 18 125/75 94 02/22/21 08:00 36.8 C 59 L 18 167/73 H 94 02/22/21 07:30 57 L 94 02/22/21 07:00 60 96 02/22/21 06:40 103/61 02/22/21 06:30 50 L 96 02/22/21 06:20 51 L 96 02/22/21 06:10 50 L 97 02/22/21 06:00 51 L 96 02/22/21 05:50 51 L 96 02/22/21 05:40 52 L 96 02/22/21 05:30 51 L 97 02/22/21 05:20 62 96 02/22/21 05:10 55 L 96 02/22/21 05:00 55 L 96 02/22/21 04:50 53 L 97 02/22/21 04:40 56 L 96 02/22/21 04:30 80 90 02/22/21 04:20 58 L 96 02/22/21 04:10 55 L 95 02/22/21 04:00 52 L 95 02/22/21 03:50 51 L 95 02/22/21 03:40 52 L 95 02/22/21 03:30 53 L 96 02/22/21 03:20 52 L 95 02/22/21 03:11 342 H 18 94 02/22/21 03:10 51 L 94 02/22/21 03:00 51 L 94 02/22/21 02:50 51 L 94 02/22/21 02:40 50 L 94 02/22/21 02:30 51 L 94 02/22/21 02:20 50 L 94 02/22/21 02:10 52 L 94 02/22/21 02:00 54 L 95 02/22/21 01:50 52 L 94 02/22/21 01:40 51 L 94 02/22/21 01:30 51 L 95 02/22/21 01:20 52 L 94 02/22/21 01:10 52 L 95 Laboratory Results Abnormal lab results 02/21/21 02/21/21 02/22/21 Range/Units 16:41 20:11 06:45 WBC 11.54 H (4.8-10.8) K/uL MPV 10.9 H (7.4-10.4) fL BUN (7-18) mg/dl Glucose (70-99) mg/dl POC Glucose 131 H 201 H (70-99) mg/dl Magnesium (1.8-2.4) mg/dl 02/22/21 02/22/21 02/22/21 Range/Units 06:45 07:35 11:35 WBC (4.8-10.8) K/uL MPV (7.4-10.4) fL BUN 21 H (7-18) mg/dl Glucose 146 H (70-99) mg/dl POC Glucose 149 H 307 H* (70-99) mg/dl Magnesium 1.7 L (1.8-2.4) mg/dl 02/22/21 Range/Units 11:36 WBC (4.8-10.8) K/uL MPV (7.4-10.4) fL BUN (7-18) mg/dl Glucose (70-99) mg/dl POC Glucose 265 H (70-99) mg/dl Magnesium (1.8-2.4) mg/dl Diagnostic Findings MRI brain- 5 mm acute lacunar infarct of the right occipital lobe.. No acute intracranial hemorrhage, midline shift or acute territorial infarct. Encephalomalacia from chronic infarct of the inferior left cerebellar hemisphere. No abnormal enhancement. Age-related involutional changes with extensive chronic microvascular ischemic disease. TTE- EF 65-70% no ASD
[2021-02-22] MEDS: CLOPIDOGREL BISULFATE 75 MG TAB PO SCH (13:38)
--- NOTE | 2021-02-22 13:39 | Cardiology Consultation ---
Date of Consultation February 22, 2021 Assessment & Plan (1) CVA (cerebral vascular accident): (2) Hyperlipidemia: (3) Hypertensive urgency: (4) COVID-19: (5) FRANCESCA on CPAP: Patient is a 70-year-old female multiple vascular risk factors including hypertension, diabetes mellitus, hyperlipidemia/dyslipidemia who presented with severe headache and hypertensive urgency. Shortly after admission and initial treatment patient developed acute onset neurologic deficits was treated with IV TPA. MRI reported lacunar occipital stroke No cardiac arrhythmias observed on telemetry (EKG pending) Echocardiogram with preserved LV systolic function mild sclerotic change the aortic valve but no valvular abnormalities and no evidence of intracardiac shunt with agitated saline contrast injection performed. Hypertension now controlled since admission after addition of amlodipine Recommendations: Antiplatelet therapy as per neurology. Treat underlying vascular risk factors including diabetes mellitus, dyslipidemia. We will change atorvastatin to rosuvastatin for better triglyceride control Continue antihypertensive regimen with potassium supplement daily EKG ordered Agree with outpatient event monitor post hospital discharge to exclude atrial arrhythmias however neurologic event symptoms developed on telemetry, in sinus rhythm History of Present Illness Reason for Consultation: Stroke Requesting Physician: Dr. Lala Attending Physician: Colin Lala MD History of Present Illness Patient is a 70-year-old female without prior history of cardiac disease issues ongoing concerns include 1. Hypertension 2. Hyperlipidemia/low HDL dyslipidemia 3. Type 2 diabetes mellitus 4. Obstructive sleep apnea Patient presented this admission with acute right-sided frontal and temporal lobe headache, hypertensive urgency. Patient treated in the emergency room for hypertension and headache. Shortly after admission patient developed acute neurologic findings consistent with TIA or stroke and was treated with IV TPA. Neurologic deficits resolved per report MRI consistent with occipital lacunar infarct Patient referred for further cardiac evaluation Currently denies chest pain shortness of breath tachypalpitations dizziness or lightheadedness. No history of atrial or arrhythmias. No history of prior TIA or stroke. No history rheumatic fever scarlet fever heart murmur. Had been generally active until recent hip pain walking as far as 5 miles daily. No current fevers or chills but was chilled on hospitalization with subsequent Covid testing resulting positive. Echocardiogram notable only for left hypertrophy and mild aortic sclerosis. No EKG on chart Telemetry with sinus and sinus bradycardia with first-degree AV block since adm ission no arrhythmia Allergies Allergy/AdvReac Type Severity Reaction Status Date / Time amoxicillin Allergy Intermediate RASH AND Verified 02/22/21 08:34 UPSET STOMACH clavulanic acid Allergy Intermediate RASH AND Verified 02/22/21 08:34 UPSET STOMACH pioglitazone Allergy Unknown Unknown Verified 02/22/21 08:34 Home Medications Medication Instructions Recorded Confirmed Type amlodipine 5 mg tablet 5 mg PO DAILY 02/20/21 02/20/21 History ascorbic acid (vitamin C) 250 mg 250 mg PO DAILY 02/20/21 02/20/21 History tablet (Vitamin C) aspirin 81 mg tablet,delayed 81 mg PO DAILY 02/20/21 02/20/21 History release atenolol 50 mg-chlorthalidone 25 1 tab PO DAILY 02/20/21 02/20/21 History mg tablet atorvastatin 20 mg tablet 20 mg PO DAILY 02/20/21 02/20/21 History calcium carbonate-vitamin D3 600 1 tab PO DAILY 02/20/21 02/20/21 History mg(1,500 mg)-400 unit chewable tablet (Calcium 600 with Vitamin D3) cyanocobalamin (vitamin B-12) 100 100 mcg PO DAILY 02/20/21 02/20/21 History mcg tablet fenofibrate 160 mg tablet 160 mg PO DAILY 02/20/21 02/20/21 History glimepiride 4 mg tablet 4 mg PO DAILY 02/20/21 02/20/21 History magnesium aspartate HCl 61 mg (615 61 mg PO DAILY 02/20/21 02/20/21 History mg) tablet,delayed release nortriptyline 10 mg capsule 10 - 20 mg PO HS PRN 02/20/21 02/20/21 History omega 1-joq-sfw-fish oil 1,200 mg 2 cap PO DAILY 02/20/21 02/20/21 History (144 mg-216 mg) capsule (Fish Oil) sitagliptin 50 mg-metformin 1,000 1 tab PO BID 02/20/21 02/20/21 History mg tablet (Janumet) Patient History Medical History CKD (chronic kidney disease) stage 3, GFR 30-59 ml/min Diabetes Diverticulosis Hyperlipidemia Hypertension Obesity (BMI 30.0-34.9) FRANCESCA on CPAP Surgical History Hx of cholecystectomy No pertinent past surgical history S/P meniscectomy Social History Smoking Status: Never smoker Second Hand Exposure: No; Do You Dip or Chew Tobacco: No; Tobacco Cessation Education Requested by Patient: No Hx Alcohol Use: No Hx Substance Use: No Preferred Language: Omani Communication Ability: Effective Developmental Specialist Required: No Beliefs That Will Affect Care: None Current Living Situation: Spouse Other Information That Helps Us Care for You: No Feels Safe at Home: Yes Safety Concerns: Feels Safe At This Time Assistive Devices: Cane and Glasses Physical Exam Constitutional: WD/WN, vitals as above + obese; no acute distress Eyes: PERRL, conjunctivae normal, anicteric sclerae ENMT: external ear and nose normal, oropharynx normal Neck: trachea midline, no thyromegaly Respiratory: normal respiratory effort, lungs clear to auscultation Cardiovascular: Rate/Rhythm: regular rate and regular rhythm Heart Sounds: normal S1 and normal S2; no gallop and no murmur Palpation: normal PMI Vessels: normal carotid upstroke and radial pulses present; no JVD and no carotid bruit Extremities: no edema Gastrointestinal (Abdomen): normal bowel sounds, soft, nontender, no hepatosplenomegaly Musculoskeletal: no cyanosis or clubbing, extremities motor strength 5/5 Skin: no rashes, warm and dry Neurologic: PERRL, EOMI, accommodation nl, no face palsy, no dysarthria Psychiatric: A+Ox3, euthymic affect Results & Data ([facility]) Vital Signs (Past 12 Hours) Vital Signs Temp Pulse Resp BP Pulse Ox 02/22/21 11:53 36.8 C 57 L 18 125/75 94 02/22/21 08:00 36.8 C 59 L 18 167/73 H 94 02/22/21 07:30 57 L 94 02/22/21 07:00 60 96 02/22/21 06:40 103/61 02/22/21 06:30 50 L 96 02/22/21 06:20 51 L 96 02/22/21 06:10 50 L 97 02/22/21 06:00 51 L 96 02/22/21 05:50 51 L 96 02/22/21 05:40 52 L 96 02/22/21 05:30 51 L 97 02/22/21 05:20 62 96 02/22/21 05:10 55 L 96 02/22/21 05:00 55 L 96 02/22/21 04:50 53 L 97 02/22/21 04:40 56 L 96 02/22/21 04:30 80 90 02/22/21 04:20 58 L 96 02/22/21 04:10 55 L 95 02/22/21 04:00 52 L 95 02/22/21 03:50 51 L 95 02/22/21 03:40 52 L 95 02/22/21 03:30 53 L 96 02/22/21 03:20 52 L 95 02/22/21 03:11 342 H 18 94 02/22/21 03:10 51 L 94 02/22/21 03:00 51 L 94 02/22/21 02:50 51 L 94 02/22/21 02:40 50 L 94 02/22/21 02:30 51 L 94 02/22/21 02:20 50 L 94 02/22/21 02:10 52 L 94 02/22/21 02:00 54 L 95 02/22/21 01:50 52 L 94 02/22/21 01:40 51 L 94 Laboratory Results Laboratory Results - last 24 hr 02/21/21 02/21/21 02/22/21 16:41 20:11 06:45 WBC 11.54 H RBC 5.09 Hgb 15.1 Hct 44.7 MCV 87.8 MCH 29.7 MCHC 33.8 RDW Std Deviation 42.2 RDW Coeff of Freddie 13.2 Plt Count 339 MPV 10.9 H Sodium Potassium Chloride Carbon Dioxide Anion Gap BUN Creatinine Est Cr Clr Drug Dosing Est GFR ( Amer) Est GFR (Non-Af Amer) BUN/Creatinine Ratio Glucose POC Glucose 131 H 201 H Calcium Phosphorus Magnesium Procalcitonin PTH Intact 02/22/21 02/22/21 02/22/21 06:45 06:45 07:35 WBC RBC Hgb Hct MCV MCH MCHC RDW Std Deviation RDW Coeff of Freddie Plt Count MPV Sodium 140 Potassium 3.5 Chloride 106 Carbon Dioxide 23 Anion Gap 11.0 BUN 21 H Creatinine 1.07 Est Cr Clr Drug Dosing 53.7 Est GFR ( Amer) 61.3 Est GFR (Non-Af Amer) 52.9 BUN/Creatinine Ratio 19.3 Glucose 146 H POC Glucose 149 H Calcium 9.2 Phosphorus 3.1 Magnesium 1.7 L Procalcitonin PTH Intact 52.9 02/22/21 02/22/21 02/22/21 09:01 11:35 11:36 WBC RBC Hgb Hct MCV MCH MCHC RDW Std Deviation RDW Coeff of Freddie Plt Count MPV Sodium Potassium Chloride Carbon Dioxide Anion Gap BUN Creatinine Est Cr Clr Drug Dosing Est GFR ( Amer) Est GFR (Non-Af Amer) BUN/Creatinine Ratio Glucose POC Glucose 307 H* 265 H Calcium Phosphorus Magnesium Procalcitonin 0.09 PTH Intact Medications Administered Current Medications Acetaminophen (Acetaminophen 325 Mg Tab) 650 mg PO Q4H PRN PRN Reason: Pain or Fever Stop: 03/22/21 16:43 Last Admin: 02/20/21 20:27 Dose: 650 mg Documented by: Amlodipine Besylate (Amlodipine Besylate 5 Mg Tab) 5 mg PO BID [facility] Stop: 03/22/21 21:46 Last Admin: 02/22/21 08:48 Dose: 5 mg Documented by: Aspirin (Aspirin 81 Mg Ectab) 81 mg PO QAM ABELARDO Stop: 03/24/21 10:59 Last Admin: 02/22/21 12:43 Dose: 81 mg Documented by: Atenolol (Atenolol 50 Mg Tablet) 50 mg PO DAILY ABELARDO Stop: 03/23/21 08:59 Last Admin: 02/22/21 08:48 Dose: 50 mg Documented by: Chlorthalidone (Chlorthalidone 25 Mg Tab) 25 mg PO DAILY ABELARDO Stop: 03/23/21 08:59 Last Admin: 02/22/21 08:49 Dose: 25 mg Documented by: Clopidogrel Bisulfate (Clopidogrel Bisulfate 75 Mg Tab) 75 mg PO DAILY ABELARDO Stop: 03/24/21 12:59 Last Admin: 02/22/21 13:38 Dose: 75 mg Documented by: Dextrose (Dextrose 50% 50 Ml Syringe) 25 - 50 ml IV UD PRN; Protocol PRN Reason: Hypoglycemia Protocol Stop: 03/22/21 16:59 Glucagon (Glucagon For Inj 1 Mg Vial) 1 mg SQ UD PRN; Protocol PRN Reason: Hypoglycemia Protocol Stop: 03/22/21 16:59 Glucose (Glucose 10 Tabs/Tube) 4 - 8 tabs PO UD PRN; Protocol PRN Reason: Hypoglycemia Protocol Stop: 03/22/21 16:59 Glucose (Glucose 40% Gel 15 Gm Tube) 15 - 30 gm PO UD PRN; Protocol PRN Reason: Hypoglycemia Protocol Stop: 03/22/21 16:59 Insulin Aspart (Insulin Aspart 100 Units/Ml 3 Ml Pen) 0 units SC ACHS [facility] Stop: 03/23/21 03:59 Last Admin: 02/22/21 12:41 Dose: 12 units Documented by: Magnesium Oxide (Magnesium Oxide 400 Mg Tab) 400 mg PO BID [facility] Stop: 02/23/21 21:01 Last Admin: 02/22/21 08:55 Dose: 400 mg Documented by: Miscellaneous (Carbohydrates For Hypoglycemia ) 15 - 30 gm PO UD PRN PRN Reason: Hypoglycemia Protocol Stop: 03/22/21 16:59 Nortriptyline HCl (Nortriptyline Hcl 10 Mg Cap) 10 mg PO HS PRN PRN Reason: Pain Stop: 03/22/21 21:46 Rosuvastatin Calcium (Rosuvastatin Calcium 20 Mg Tab) 40 mg PO QAM [facility] Stop: 03/25/21 08:59
--- NOTE | 2021-02-22 16:25 | Critical Care Progress Note ---
Date of Service February 22, 2021 Assessment & Plan (1) Admitted to intensive care unit: Plan: Attending: Dr. Bryan Impression: Reason Critically Ill: 70-year-old female admitted with hypertensive urgency with subsequent onset of CVA S/S who is s/p TPA administration. Patient is COVID-19 positive. Patient has no further neurological symptoms. 1. Acute CVA: Status post TPA administration at 12:05 AM this morning. No active bleeding. Hemodynamically stable. No abdominal pain. Status post TPA protocol. Seen by neurology. They recommended dual antiplatelet therapy with Plavix and aspirin. However MRI shows no acute infarct. Recommend holding off on Plavix and ASA until further, by neurology. 2. Hypertensive emergency: Continue hydralazine as needed for systolic blood pressure greater than 180. Allow for permissive hypertension due to acute CVA. Patient's home medications including amlodipine, atenolol were restarted and tolerated. No headache. No lightheadedness or dizziness. No other symptomatic findings. Blood pressure now controlled. Echocardiogram ordered and being performed now. Await report. 3. Nutrition: Patient passed her dysphagia screening. Tolerating diabetic/AHA diet. 4. SARs-Cov-2: Positive screening but patient remains asymptomatic. Continue to monitor on telemetry. Inasmuch as patient is asymptomatic, no indication for dexamethasone, remdesivir, other medications. Hold chemical prophylaxis for hypercoagulability from COVID-19 as patient received TPA for acute CVA. Patient be discharged home once cleared for neurology. Disposition: Okay to downgrade patient from critical care to telemetry. Thank you for including us in the care of this patient. At this time we will sign off. Please feel free to reconsult as needed. (2) CVA (cerebral vascular accident): (3) Hypertensive urgency: (4) Diabetes mellitus type 2 in obese: (5) COVID-19: (6) Headache: (7) Hyperlipidemia: (8) FRANCESCA on CPAP: (9) Obesity (BMI 30.0-34.9): (10) CKD (chronic kidney disease) stage 3, GFR 30-59 ml/min: Admission and Anticipated Discharge Date Admission Date: February 20, 2021 Supervising Physician Co-Signing Physician Notes I saw and evaluated the patient with Mark Castellon, and agree with findings and plan as documented in the note. Patient seen and examined at bedside. No acute distress, noted with symptoms overnight Patient's MRI showed 5 mm acute lacunar infarct in the right occipital lobe Patient denied any headache, no nausea, no vomiting She had her breakfast today. No blurry vision Constitutional: No acute distress HEENT: EOMI, PERRLA Respiratory system: Good air entry bilaterally, no wheeze, rhonchi, mild crack les bilaterally CVS: S1-S2 positive, no murmurs or gallops Abdomen: Soft, nontender, nondistended, positive bowel sounds x4 Extremities: +2 pulses bilaterally radialis/ dorsalis pedis, no cyanosis, no edema, muscle strength 5/5 bilateral upper and lower extremity Neuro: Awake alert oriented x3, cranial nerves II through XII grossly intact Psych: Normal mood and affect G/U: No Porter Plan: Patient is hemodynamically stable to be downgraded to medical floor Start aspirin and high-dose atorvastatin Try to keep systolic blood pressure less than 160 Please note the above document was generated using voice recognition software. It may contain grammatical, syntax or spelling errors.Any formal questions or concerns about the content, text or information contained within the body of this dictation should be directly addressed to the provider for clarification. Subjective Attending: Dr. Bryan Patient seen and examined in room 211. She has no further events from admission. She is status post TPA administration for S/S CVA. She has a new acute infarct identified on MRI there was not visualized on CT of the head. Neurology has seen the patient. Patient denies any headache today. She has no unusual bleeding. She has no shortness of breath. She denies fever, chills, sweats, rigors. She has no further acute complaints. Review of Systems Review of Systems: All systems reviewed & are unremarkable except as noted in Subjective Physical Exam Physical Exam: Patient seen and examined in room 211 GENERAL : No acute distress EYES: No icterus, gaze conjugate NOSE: No evidence of epistaxis MOUTH: No lesions or candidiasis NECK: Supple LUNGS: CTA B/L, no wheezes, rales or rhonchi HEART: Regular, rate controlled ABDOMEN: Soft, NT, ND, BS Present EXTREMITIES: No LE edema, pedal pulses intact NEURO: A&OX3. No pronator drift. Strength equal and appropriate bilateral upper and lower extremities. Pupils equal round and reactive to light. No appreciable neurological deficits. Results & Data Results & Data ([facility]) Vital Signs (Past 12 Hours) Vital Signs Temp Pulse Resp BP Pulse Ox 02/22/21 15:41 36.9 C 59 L 18 144/68 H 97 02/22/21 11:53 36.8 C 57 L 18 125/75 94 02/22/21 08:00 36.8 C 59 L 18 167/73 H 94 02/22/21 07:30 57 L 94 02/22/21 07:00 60 96 02/22/21 06:40 103/61 02/22/21 06:30 50 L 96 02/22/21 06:20 51 L 96 02/22/21 06:10 50 L 97 02/22/21 06:00 51 L 96 02/22/21 05:50 51 L 96 02/22/21 05:40 52 L 96 02/22/21 05:30 51 L 97 02/22/21 05:20 62 96 02/22/21 05:10 55 L 96 02/22/21 05:00 55 L 96 02/22/21 04:50 53 L 97 02/22/21 04:40 56 L 96 02/22/21 04:30 80 90 Laboratory Results 02/22/21 06:45 02/22/21 06:45 Diagnostic Findings Brain MRI 02/21/21 19:28 MR brain wo/w con HISTORY: 70 years-old Female CVA s/p TPA acute severe headache with strokelike symptoms. COMPARISON: Head CT 02/20/2021. TECHNIQUE: Multiplanar and multisequence MRI of the brain was obtained both with and without the use of 9 cc Gadavist. FINDINGS: The doll wig maker localizer images demonstrate no gross extracranial abnormality. There is a 5 mm focus of acute infarct noted within the right occipital lobe on image 11 series 4 demonstrating mildly increased T2/FLAIR signal. Partially empty sella. No acute intracranial hemorrhage, midline shift, abnormal extra-axial collection, hydrocephalus or intracranial mass. Encephalomalacia from chronic infarct within the inferior left cerebellar hemisphere. No pathologic blooming artifact within the brain parenchyma. Mild involutional changes. Extensive T2/FLAIR hyperintensities are noted throughout the white matter. There is no abn ormal intra-axial or extra-axial enhancement. Cerebral venous sinuses and major arterial flow voids appear patent. Small mastoid effusions. Mild mucosal thickening of the paranasal sinuses. The skull, orbits and soft tissues are unremarkable. Disconjugate gaze. IMPRESSION: 1. 5 mm acute lacunar infarct of the right occipital lobe. 2. No acute intracranial hemorrhage, midline shift or acute territorial infarct. 3. Encephalomalacia from chronic infarct of the inferior left cerebellar hemisph ere. 4. No abnormal enhancement. 5. Age-related involutional changes with extensive chronic microvascular ischemic disease. ACT 112: Negative or not required by law. The above report was generated using voice recognition software. It may contain grammatical, syntax or spelling errors. Dictated: 02/22/2021 8:04 AM Transcribed: 02/22/2021 8:43 AM Lorraine [id number] CHRISTINE_[email or web address] Electronically signed by: Alden Madrid M.D. 02/22/2021 9:59 AM Coding Level of Care Code 82979 Subseq Hosp Care Lvl 2 Diagnoses Admitted to intensive care unit Z78.9 CVA (cerebral vascular accident) I63.9 Hypertensive urgency I16.0 Diabetes mellitus type 2 in obese E11.69; E66.9 COVID-19 U07.1 Headache R51.9 Headache chronicity pattern: acute headache Headache type: unspecified Intractability: not intractable Hyperlipidemia E78.5 FRANCESCA on CPAP G47.33; Z99.89 Obesity (BMI 30.0-34.9) E66.9 CKD (chronic kidney disease) stage 3, GFR 30-59 ml/min N18.30 Time Spent (min) 30 (1) Headache Headache chronicity pattern: acute headache Headache type: unspecified Intractability: not intractable Qualified Code(s): R51.9 - Headache, unspecified
--- NOTE | 2021-02-22 17:25 | Hospitalist Progress Note ---
Date of Service February 22, 2021 Assessment & Plan (1) CVA (cerebral vascular accident): (2) Obesity (BMI 30.0-34.9): (3) Hypertensive urgency: (4) COVID-19: Plan: 70-year-old female with history of hypertension, hyperlipidemia, diabetes mellitus type 2, not on insulin, CKD stage III, FRANCESCA on CPAP, obesity, who presented 02/20 with headache. She is being managed for the following: #.Stroke Presented to ER with hypertensive urgency with a blood pressure of more than 200 systolic associated with headache 02/20 She was noted to have strokelike symptoms with mild slurred speech and vision problem in the left eye which was noted around 9 PM on 02/20/2021 [place] teleNeuromedicine was consulted and she received TPA 12:05 AM 02/21. 02/21 MRI: 5 mm acute lacunar infarct of the right occipital lobe. No acute intracranial hemorrhage or midline shift. Patient received ICU care for 24 hours after TPA administration. Her symptoms are totally resolved Neurology on board: PT/OT eval, DAPT for 21 days starting 02/22, Plavix 75 mg daily for life. LDL goal of 70 or less. Zio patch as an outpatient to exclude A. fib. Okay to DC. Cardiology on board: Agrees with antiplatelet therapy per neurology and agrees with outpatient event monitor. Change atorvastatin to rosuvastatin for better triglyceride control. PT/OT eval, continue supportive care. #. COVID-19: Vaccinated, noted positive for COVID-19 virus at admission, remains a symptomatic with regard to respiratory signs and symptoms. Has not been getting any medicine for COVID-19 infection. #. Hypertensive urgency: #. Headache Presented to ER with very high systolic blood pressure of more than 200 associated with headache Admitting CT head was negative. Blood pressure is reasonably controlled and are maintaining at around 140 systolic. Headache has resolved. Continue with home atenololchlorthalidone, amlodipine increased to 5 mg BD from 5 mg daily. Per primary care note, patient developed cough with RENE inhibitor's. IV hydralazine as needed. #. Diabetes mellitus type 2 in obese - last Hgb A1c 8.1% in September 2020 - hold home PO medications - SSI while inpt - follow up as outpt #. Hyperlipidemia: -Atorvastatin changed to rosuvastatin per cardiology. #. FRANCESCA on CPAP: - cont. CPAP -Patient's daughter says she can bring one from home #. Obesity (BMI 30.0-34.9): - provide counseling #. CKD (chronic kidney disease) stage 3, GFR 30-59 ml/min: - baseline Cr 1.2 - currently at baseline - try to avoid nephrotoxic agents - NSAIDs, contrast - cont. to monitor Hypercalcemia -Admitting Ca 11.2 -Hold home calcium supplement, 02/22 PTH 52.9 -Resolved Monitor electrolytes and replete as appropriate. DVT ppx : SCDs Disposition: PT recommending home upon medical stability. Likely DC tomorrow. Will need to set up for Zio patch monitor. Admission and Anticipated Discharge Date Admission Date: February 20, 2021 Subjective Patient was lying in bed, on room air, NAD, no acute events overnight. Patient reports feeling better. Patient is eating and moving bowels okay. Patient denies any headache/dizziness/chest pain/palpitation/other review of symptoms. Physical Exam Physical Exam: GENERAL: Alert and oriented x3. NAD, on RA. HEENT: No pallor, no icterus. Pupils equal, round and reactive to light. Oral mucosa moist. NECK: No JVD, no neck masses. HEART: S1 and S2 heard. Regular rate and rhythm. No murmur, no gallop. RESPIRATORY SYSTEM: Normal AP diameter. No accessory muscle use. No wheezing, no crackles. ABDOMEN: Soft, bowel sounds present, nontender, no distention. CENTRAL NERVOUS SYSTEM: No facial droop. Speech is clear. Obeys simple commands. Moves extremities. EXTREMITIES: No edema, no erythema seen. Results & Data Results & Data ([facility]) Vital Signs (Past 12 Hours) Vital Signs Temp Pulse Resp BP Pulse Ox 02/22/21 15:41 36.9 C 59 L 18 144/68 H 97 02/22/21 11:53 36.8 C 57 L 18 125/75 94 02/22/21 08:00 36.8 C 59 L 18 167/73 H 94 02/22/21 07:30 57 L 94 02/22/21 07:00 60 96 02/22/21 06:40 103/61 02/22/21 06:30 50 L 96 02/22/21 06:20 51 L 96 02/22/21 06:10 50 L 97 02/22/21 06:00 51 L 96 02/22/21 05:50 51 L 96 02/22/21 05:40 52 L 96 02/22/21 05:30 51 L 97
[2021-02-23 06:31] LABS: Hematocrit (blood only) 41.8 % (37-47); Hemoglobin 14.6 g/dL (12.0-16.0); Mean Corpuscular Hemoglobin 30.7 pg (25-34); Mean Corpuscular Hgb Conc 34.9 g/dL (32-36); Mean Platelet Volume 10.4 fL (7.4-10.4); Platelet Count 279 K/uL (130-400); RDW Coefficient of Variation 13.1 % (11.5-14.5); RDW Standard Deviation 42.1 fL (36.4-46.3); Red Blood Count 4.75 M/uL (4.2-5.4); White Blood Count 8.02 K/uL (4.8-10.8)
[2021-02-23 07:04] LABS: BUN Creatinine Ratio 22.3 (10-20); Calcium 8.7 mg/dl (8.5-10.1); Creatinine Clr Calc Pharmacy 57.4 ml/min; Est GFR (African American) 66.6 ml/min; Est GFR (Non-African American) 57.4 ml/min; Magnesium 1.8 mg/dl (1.8-2.4); Potassium 3.4 mmol/L (3.5-5.1)
[2021-02-23] MEDS ORDERED: POTASSIUM CHLORIDE CRTAB 20 MEQ TABCR PO STA (07:29)
[2021-02-23] MEDS: MAGNESIUM OXIDE 400 MG TAB PO SCH (08:05)
[2021-02-23] MEDS: amLODIPine BESYLATE 5 MG TAB PO SCH (08:05)
[2021-02-23] MEDS: ASPIRIN 81 MG ECTAB PO SCH (08:06)
[2021-02-23] MEDS: CHLORTHALIDONE 25 MG TAB PO SCH (08:06)
[2021-02-23] MEDS: ATENOLOL 50 MG TABLET PO SCH (08:06)
[2021-02-23] MEDS: CLOPIDOGREL BISULFATE 75 MG TAB PO SCH (08:06)
[2021-02-23] MEDS: INSULIN ASPART 100 UNITS/ML 3 ML PEN SC SCH ×2 (08:36→12:52)
--- NOTE | 2021-02-23 08:39 | Electrocardiogram Report ---
Test Reason : Blood Pressure : / mmHG Vent. Rate : 058 BPM Atrial Rate : 058 BPM P-R Int : 210 ms QRS Dur : 134 ms QT Int : 502 ms P-R-T Axes : 057 -07 016 degrees QTc Int : 492 ms Sinus bradycardia with 1st degree A-V block with Premature atrial complexes Right bundle branch block Abnormal ECG When compared with ECG of 22-SEP-2013 12:54, Premature atrial complexes are now Present Confirmed by Brennan Moore ([id number]) on 02/23/2021 8:39:20 AM Referred By: REFERRED SELF Confirmed By:Brennan Moore
[2021-02-23] MEDS ORDERED: ATORVASTATIN 40 MG TAB PO SCH (09:00)
[2021-02-23] MEDS ORDERED: ROSUVASTATIN CALCIUM 20 MG TAB PO SCH (09:00)
--- NOTE | 2021-02-23 11:05 | Cardiology Progress Note ---
Date of Service February 23, 2021 Assessment & Plan (1) CVA (cerebral vascular accident): (2) Hyperlipidemia: (3) Hypertensive urgency: (4) COVID-19: (5) FRANCESCA on CPAP: Plan: Patient is a 70-year-old female multiple vascular risk factors including hypertension, diabetes mellitus, hyperlipidemia/dyslipidemia who presented with severe headache and hypertensive urgency. Shortly after admission and initial treatment patient developed acute onset neurologic deficits was treated with IV TPA. MRI reported lacunar occipital stroke No cardiac arrhythmias observed on telemetry (EKG pending) Echocardiogram with preserved LV systolic function mild sclerotic change the aortic valve but no valvular abnormalities and no evidence of intracardiac shunt with agitated saline contrast injection performed. Patient with elevated blood pressures overnight with mild symptomatic complaint Recommendations: Antiplatelet therapy as per neurology. Treat underlying vascular risk factors including diabetes mellitus, dyslipidemia. We will change atorvastatin to rosuvastatin for better triglyceride control Would initiate ARB for both hypertension and renal protective effects and diabetes. Losartan 25 mg ordered. Would change amlodipine 5 mg from twice daily to nightly dosing No arrhythmias on telemetry since admission and during acute neurologic event. Agree with complete evaluation with event monitor post discharge. Admission and Anticipated Discharge Date Admission Date: February 20, 2021 Subjective Patient was seen and examined, chart, medications, telemetry reviewed. Patient notes symptoms of heart pounding and had with elevated blood pressures no acute neurologic complaints. No arrhythmias on telemetry Physical Exam Constitutional: WD/WN, vitals as above + obese; no acute distress Eyes: PERRL, conjunctivae normal, anicteric sclerae ENMT: external ear and nose normal, oropharynx normal Neck: trachea midline, no thyromegaly Respiratory: normal respiratory effort, lungs clear to auscultation Cardiovascular: Rate/Rhythm: regular rate and regular rhythm Heart Sounds: normal S1 and normal S2; no gallop and no murmur Palpation: normal PMI Vessels: normal carotid upstroke and radial pulses present; no JVD and no carotid bruit Extremities: no edema Gastrointestinal (Abdomen): normal bowel sounds, soft, nontender, no hepatosplenomegaly Musculoskeletal: no cyanosis or clubbing, extremities motor strength 5/5 Skin: no rashes, warm and dry Neurologic: PERRL, EOMI, accommodation nl, no face palsy, no dysarthria Psychiatric: A+Ox3, euthymic affect Results & Data ([place]) Vital Signs (Past 12 Hours) Vital Signs Temp Pulse Pulse Resp BP Pulse Ox 02/23/21 07:32 37 C 62 18 159/76 H 97 02/23/21 06:03 56 L 17 96 02/23/21 04:08 36.9 C 66 19 143/79 H 96 02/23/21 03:38 65 21 96 02/23/21 00:02 37.2 C 63 19 165/84 H 96 02/22/21 23:04 72 20 98 Laboratory Results Laboratory Results - last 24 hr 02/22/21 02/22/21 02/22/21 11:35 11:36 16:09 WBC RBC Hgb Hct MCV MCH MCHC RDW Std Deviation RDW Coeff of Freddie Plt Count MPV Sodium Potassium Chloride Carbon Dioxide Anion Gap BUN Creatinine Est Cr Clr Drug Dosing Est GFR ( Amer) Est GFR (Non-Af Amer) BUN/Creatinine Ratio Glucose POC Glucose 307 H* 265 H 208 H Calcium Magnesium 02/22/21 02/23/21 02/23/21 20:09 05:39 05:39 WBC 8.02 RBC 4.75 Hgb 14.6 Hct 41.8 MCV 88.0 MCH 30.7 MCHC 34.9 RDW Std Deviation 42.1 RDW Coeff of Freddie 13.1 Plt Count 279 MPV 10.4 Sodium 141 Potassium 3.4 L Chloride 106 Carbon Dioxide 25 Anion Gap 10.0 BUN 22 H Creatinine 1.00 Est Cr Clr Drug Dosing 57.4 Est GFR ( Amer) 66.6 Est GFR (Non-Af Amer) 57.4 BUN/Creatinine Ratio 22.3 H Glucose 179 H POC Glucose 188 H Calcium 8.7 Magnesium 1.8 02/23/21 07:59 WBC RBC Hgb Hct MCV MCH MCHC RDW Std Deviation RDW Coeff of Freddie Plt Count MPV Sodium Potassium Chloride Carbon Dioxide Anion Gap BUN Creatinine Est Cr Clr Drug Dosing Est GFR ( Amer) Est GFR (Non-Af Amer) BUN/Creatinine Ratio Glucose POC Glucose 181 H Calcium Magnesium Medications Administered Current Medications Acetaminophen (Acetaminophen 325 Mg Tab) 650 mg PO Q4H PRN PRN Reason: Pain or Fever Stop: 03/22/21 16:43 Last Admin: 02/20/21 20:27 Dose: 650 mg Documented by: Amlodipine Besylate (Amlodipine Besylate 5 Mg Tab) 5 mg PO BID [facility] Stop: 03/22/21 21:46 Last Admin: 02/23/21 08:05 Dose: 5 mg Documented by: Aspirin (Aspirin 81 Mg Ectab) 81 mg PO QAM ABELARDO Stop: 03/24/21 10:59 Last Admin: 02/23/21 08:06 Dose: 81 mg Documented by: Atenolol (Atenolol 50 Mg Tablet) 50 mg PO DAILY ABELARDO Stop: 03/23/21 08:59 Last Admin: 02/23/21 08:06 Dose: 50 mg Documented by: Chlorthalidone (Chlorthalidone 25 Mg Tab) 25 mg PO DAILY ABELARDO Stop: 03/23/21 08:59 Last Admin: 02/23/21 08:06 Dose: 25 mg Documented by: Clopidogrel Bisulfate (Clopidogrel Bisulfate 75 Mg Tab) 75 mg PO DAILY ABELARDO Stop: 03/24/21 12:59 Last Admin: 02/23/21 08:06 Dose: 75 mg Documented by: Dextrose (Dextrose 50% 50 Ml Syringe) 25 - 50 ml IV UD PRN; Protocol PRN Reason: Hypoglycemia Protocol Stop: 03/22/21 16:59 Glucagon (Glucagon For Inj 1 Mg Vial) 1 mg SQ UD PRN; Protocol PRN Reason: Hypoglycemia Protocol Stop: 03/22/21 16:59 Glucose (Glucose 10 Tabs/Tube) 4 - 8 tabs PO UD PRN; Protocol PRN Reason: Hypoglycemia Protocol Stop: 03/22/21 16:59 Glucose (Glucose 40% Gel 15 Gm Tube) 15 - 30 gm PO UD PRN; Protocol PRN Reason: Hypoglycemia Protocol Stop: 03/22/21 16:59 Insulin Aspart (Insulin Aspart 100 Units/Ml 3 Ml Pen) 0 units SC ACHS ABELARDO Stop: 03/23/21 03:59 Last Admin: 02/23/21 08:36 Dose: 8 units Documented by: Magnesium Oxide (Magnesium Oxide 400 Mg Tab) 400 mg PO BID ABELARDO Stop: 02/23/21 21:01 Last Admin: 02/23/21 08:05 Dose: 400 mg Documented by: Miscellaneous (Carbohydrates For Hypoglycemia ) 15 - 30 gm PO UD PRN PRN Reason: Hypoglycemia Protocol Stop: 03/22/21 16:59 Nortriptyline HCl (Nortriptyline Hcl 10 Mg Cap) 10 mg PO HS PRN PRN Reason: Pain Stop: 03/22/21 21:46 Rosuvastatin Calcium (Rosuvastatin Calcium 20 Mg Tab) 40 [facility] [place] Stop: 03/25/21 08:59
[2021-02-23] MEDS ORDERED: LOSARTAN POTASSIUM 25 MG TAB PO SCH (11:15)
--- NOTE | 2021-02-23 14:12 | Discharge Summary ---
Date of Service February 23, 2021 Admission HPI Per Admitting Provider 70-year-old female, with history of hypertension, hyperlipidemia, diabetes mellitus type 2, not on insulin, CKD stage III, FRANCESCA on CPAP, obesity, who presents with headache. Patient reports she worked with PT for her chronic right hip pain, when she developed right-sided headache. She took Tylenol at home, however as symptoms did not resolved, she presented to ED. In ED CT scan of head was negative, and she also received " headache cocktail" which included Compazine, magnesium, Decadron, Benadryl. Her symptoms however did not improve much. Her blood pressure was also quite elevated, systolic blood pressure over 200 when she presented to ED. She received 10 IV of hydralazine which helped symptoms significantly. Patient reports she usually does not have headaches however her blood pressures been running on the higher side. Recently she had injection done for her sacroiliac joint pain, and at that time her blood pressure was elevated, and it was attributed to pain. Recently she was also started on oxycodone. Patient reports she has been having issues with her right hip pain since September after she took a long driving trip with her family. Says that her primary care physician plans to do MRI next. In the ED, her calcium is also slightly elevated, and potassium slightly low. Per primary care records, potassium is about the same. Also her renal function seems to be unchanged. Reportedly RENE inhibitor causes cough for her. In ED, did not want to do labetalol for her blood pressure given her heart rates in the 50s. Currently she is lying in bed, in no acute distress, sleepy after all the medications she was given. Daughter is at the bedside. Patient reports she still has some headache but much improved. Denies any other symptoms. Specifically denies any fevers, chills, chest pain, shortness of breath, abdominal pain, nausea or vomiting. Admission Exam Per Admitting Provider Constitutional: WD/WN, vitals as above (obese F in NAD, on RA) Eyes: PERRL, conjunctivae normal, anicteric sclerae ENMT: external ear and nose normal, oropharynx normal Neck: trachea midline, no thyromegaly Respiratory: normal respiratory effort, lungs clear to auscultation Cardiovascular: RRR, no murmur, no edema Chest (Breasts): Chest: normal inspection of chest Gastrointestinal (Abdomen): normal bowel sounds, soft, nontender, no hepatosplenomegaly Musculoskeletal: no cyanosis or clubbing, extremities motor strength 5/5 Skin: no rashes, warm and dry Neurologic: PERRL, EOMI, accommodation nl, no face palsy, no dysarthria Psychiatric: A+Ox3, euthymic affect Genitourinary: no CVA tenderness Lymphatic: no lymphedema Principal Diagnosis Hypertensive urgency Stroke Discharge Exam GENERAL: Alert and oriented x3. NAD, on RA. HEENT: No pallor, no icterus. Pupils equal, round and reactive to light. Oral mucosa moist. NECK: No JVD, no neck masses. HEART: S1 and S2 heard. Regular rate and rhythm. No murmur, no gallop. RESPIRATORY SYSTEM: Normal AP diameter. No accessory muscle use. No wheezing, no crackles. ABDOMEN: Soft, bowel sounds present, nontender, no distention. CENTRAL NERVOUS SYSTEM: No facial droop. Speech is clear. Obeys simple commands. Moves extremities. EXTREMITIES: No edema, no erythema seen. Discharge Data Allergies Allergy/AdvReac Type Severity Reaction Status Date / Time amoxicillin Allergy Intermediate RASH AND Verified 02/22/21 08:34 UPSET STOMACH clavulanic acid Allergy Intermediate RASH AND Verified 02/22/21 08:34 UPSET STOMACH pioglitazone Allergy Unknown Unknown Verified 02/22/21 08:34 Consultations 02/20/21 15:59 ED Decision to Admit Stat 02/20/21 16:58 ED Decision to Admit Stat 02/21/21 00:12 Consult Shipbuilding Draftsperson Routine 02/21/21 10:23 Consult Neurology Routine 02/22/21 08:24 Consult Cardiology Routine Ordered Studies 02/20/21 12:44 CT head/brain wo con Stat 02/20/21 21:57 CT head/brain wo con Urgent 02/20/21 21:58 CT angio head w con Urgent CT angio neck with con Urgent 02/21/21 03:06 CT abd pelvis IV con only Urgent 02/21/21 19:28 MR brain wo/w con Urgent Hospital Course (1) CVA (cerebral vascular accident): (2) Obesity (BMI 30.0-34.9): (3) Hypertensive urgency: (4) COVID-19: 70-year-old female with history of hypertension, hyperlipidemia, diabetes mellitus type 2, not on insulin, CKD stage III, FRANCESCA on CPAP, obesity, who presented 02/20 with headache. She was managed for the following: #.Stroke Presented to ER with hypertensive urgency with a blood pressure of more than 200 systolic associated with headache 02/20 She was noted to have strokelike symptoms with mild slurred speech and vision problem in the left eye which was noted around 9 PM on 02/20/2021 [place] teleNeuromedicine was consulted and she received TPA 12:05 AM 02/21. 02/21 MRI: 5 mm acute lacunar infarct of the right occipital lobe. No acute intracranial hemorrhage or midline shift. Patient received ICU care for 24 hours after TPA administration. Her symptoms are totally resolved Neurology on board: PT/OT eval, DAPT for 21 days starting 02/22, Plavix 75 mg daily for life. LDL goal of 70 or less. Zio patch as an outpatient to exclude A. fib. Okay to DC. f/u with neuro as an outpatient. Cardiology on board: Agrees with antiplatelet therapy per neurology and agrees with outpatient event monitor. Change atorvastatin to rosuvastatin for better triglyceride control. Added losartan, decreased amlod to 5 mg HS. Patient to follow-up with PCP, neurology and cardiology as an outpatient. #. COVID-19: Vaccinated, noted positive for COVID-19 virus at admission, remains a symptomatic with regard to respiratory signs and symptoms. Has not been getting any medicine for COVID-19 infection. #. Hypertensive urgency: #. Headache Presented to ER with very high systolic blood pressure of more than 200 associated with headache Admitting CT head was negative. Blood pressure is reasonably controlled and are maintaining at around 140-150 systolic. Headache has resolved. Continue with home atenololchlorthalidone, amlodipine 5 mg at bedtime and new medication losartan 25 mg daily #. Diabetes mellitus type 2 in obese - last Hgb A1c 8.1% in September 2020 - hold home PO medications - SSI while inpt - follow up as outpt #. Hyperlipidemia: -Atorvastatin changed to rosuvastatin per cardiology. #. FRANCESCA on CPAP: - cont. CPAP #. Obesity (BMI 30.0-34.9): - provide counseling #. CKD (chronic kidney disease) stage 3, GFR 30-59 ml/min: - baseline Cr 1.2 - At baseline Hypercalcemia -Admitting Ca 11.2 -Hold home calcium supplement, 11/17 PTH 52.9 -Resolved Patient being discharged to home with following instruction at the point of discharge: Take aspirin for 19 more days. Continue Plavix indefinitely. Follow-up with neurology as an outpatient. Follow-up with cardiology as an outpatient. Follow-up with your primary care physician within a week time. Get your BMP [blood work] done in 5 days upon discharge, have the results forwarded to your primary care physician. You were started on losartan as per cardiology while inpatient. You are being discharged on event monitor. Your atorvastatin is changed to rosuvastatin. Take medications as prescribed. Total Time Total Time Spent Total Time Spent (In Minutes): 40 Discharge Plan Discharge Items Patient Disposition: Home - Self-Care Reason For Visit: HYPERTENSOVE URGENCY Discharge Diagnosis: Hypertensive urgency CVA Activity: Resume your previous activity Non-emergency contact: Primary Care Provider Call non-emergency contact if: you have any medication questions and your symptoms worsen Follow-up/Referrals: Vanita Dey PA-C [Physician Stitch Bonding Machine Operator] - (Date & Time 04/11/2021 11:20 AM Provider Vanita Dey PA-C Department Neurology [facility] ) Brennan Hendrix MD [Primary Care Provider] - (Date & Time 03/03/2021 11:00 AM Provider Brennan Hendrix MD Department Family Practice [facility] PLEASE NOTE THAT THIS IS A TELEMEDICINE APPOINTMENT. PLEASE FOLLOW THE INSTRUCTIONS PROVIDED IN YOUR EMAIL. IF YOU HAVE ANY QUESTIONS REGARDING THIS APPOINTMENT, PLEASE CALL ) Diet: Heart Healthy Addtl Attending Provider Instructions: Take aspirin for 19 more days. Continue Plavix indefinitely. Follow-up with neurology as an outpatient. Follow-up with cardiology as an outpatient. Follow-up with your primary care physician within a week time. Get your BMP [blood work] done in 5 days upon discharge, have the results forwa rded to your primary care physician. You were started on losartan as per cardiology while inpatient. You are being discharged on event monitor. Your atorvastatin is changed to rosuvastatin. Take medications as prescribed. Pending Studies at Discharge: No Stand-Alone Forms: My [email or web address], Smoking Cessation Medications and DC Order Prescriptions: New clopidogrel 75 mg Tablet 75 mg PO DAILY Qty: 30 RF: 0 amlodipine [Norvasc] 5 mg Tablet 5 mg PO HS Qty: 30 RF: 0 losartan 25 mg Tablet 25 mg PO QAM Qty: 30 RF: 0 rosuvastatin [Crestor] 20 mg Tablet 40 mg PO QAM Qty: 60 RF: 0 aspirin 81 mg Tablet,Delayed Release (Dr/Ec) 81 mg PO QAM 19 Days Qty: 19 RF: 0 potassium chloride 10 mEq Tablet,Er Particles/Crystals 10 meq PO DAILY Qty: 30 RF: 0 Continued magnesium aspartate HCl 61 mg (615 mg) Tablet,Delayed Release (Dr/Ec) 61 mg PO DAILY RF: 0 cyanocobalamin (vitamin B-12) 100 mcg Tablet 100 mcg PO DAILY RF: 0 atenolol-chlorthalidone 50-25 mg tablet 1 tab PO DAILY RF: 0 ascorbic acid (vitamin C) [Vitamin C] 250 mg Tablet 250 mg PO DAILY RF: 0 nortriptyline 10 mg capsule 10 - 20 mg PO HS PRN (Reason: Pain) RF: 0 glimepiride 4 mg tablet 4 mg PO DAILY RF: 0 fenofibrate 160 mg tablet 160 mg PO DAILY RF: 0 Janumet 50-1,000 mg tablet 1 tab PO BID RF: 0 Calcium 600 with Vitamin D3 600 mg(1,500mg) -400 unit Tablet,Chewable 1 tab PO DAILY RF: 0 omega 3-rsn-ezz-fish oil [Fish Oil] 1,200 (144-216) mg Capsule 2 cap PO DAILY RF: 0 Discontinued atorvastatin 20 mg tablet 20 mg PO DAILY RF: 0 amlodipine 5 mg tablet 5 mg PO DAILY RF: 0 aspirin 81 mg Tablet,Delayed Release (Dr/Ec) 81 mg PO DAILY RF: 0 Discharge Orders: Discharge Order (Routine); Ordered 02/23/21 Ordered By: Colin Lala Admission Data Admit Date/Time: 02/20/21 16:44 Attending Provider: Colin Lala Admit Provider: Joseph Alberto Primary Care Provider: Brennan Hendrix Other Providers: Rober Manley ; Joseph Alberto ; Amadou Lane ; Vanita Barrera ; James Stoner
[2021-02-23] MEDS ORDERED: amLODIPine BESYLATE 5 MG TAB PO SCH (21:00)
[2021-02-24] MEDS ORDERED: POTASSIUM CHLORIDE 10 MEQ TABCR PO SCH (09:00)
== END 2021-02-23 17:36 | disposition home or self-care (01) | DRG 61 ==
LOC: ED 12:03 → 2S 16:44 → SUATTDRO 16:44 → 2S 20:46 → 2E 02-21 01:35